=== PATIENT | male | born 1950 | race Caucasian/White ===

== ENCOUNTER 2017-02-21 14:17 | Observation (INO) | payer MEDICARE, OTHER ==
--- NOTE | 2017-02-21 15:30 | PDOC ---
Attending Attestation - HPI HPI: 02/21/17 16:38 66 y/o M with a PMHx of HTN, HLD, diabetes presents to the ED with intermittent palpitations. He reports associated occasional dizziness. Denies chest pain, SOB , abdominal pain. Denies NVD. - Physicial Exam PE: 02/21/17 16:38 GENERAL: Awake, alert, and fully oriented, in no acute distress HEAD: No signs of trauma EYES: PERRLA, EOMI, sclera anicteric, conjunctiva clear ENT: Auricles normal inspection, hearing grossly normal, nares patent, oropharynx clear without exudates. Moist mucosa NECK: Normal ROM, supple, no lymphadenopathy, JVD, or masses LUNGS: Breath sounds equal, clear to auscultation bilaterally. No wheezes, and no crackles HEART: Regular rate and rhythm, normal S1 and S2, no murmurs, rubs or gallops ABDOMEN: Soft, nontender, normoactive bowel sounds. No guarding, no rebound. No masses EXTREMITIES: Normal range of motion, no edema. No clubbing or cyanosis. No cords, erythema, or tenderness NEUROLOGICAL: Cranial nerves II through XII grossly intact. Normal speech, normal gait SKIN: Warm, Dry, normal turgor, no rashes or lesions noted. - Medical Decision Making 02/21/17 16:38 Documentation prepared by Ruth Serrato, acting as medical registrar for Lidia Segal DO. <Ruth Serrato - Last Filed: 02/21/17 16:38> - Resident Resident Name: Keenan Tucker - ED Attending Attestation I have performed the following: I have examined & evaluated the patient, The case was reviewed & discussed with the resident, I agree w/resident's findings & plan, Exceptions are as noted - Medical Decision Making 02/21/17 19:04 a/p: pt with aflutter in the office, intermittent palpitations this week assoc with lightheadedness -will check labs, ekg, cxr, tsh reassess 02/21/17 19:08 pt will be placed in obs for rabaddi. <Lidia Segal - Last Filed: 02/21/17 19:08> Discharge Disposition - Discharge Dispostion Admit: Yes <Lidia Segal - Last Filed: 02/21/17 19:08> - Diagnosis Palpitations - Discharge Dispostion Condition at time of disposition: Stable - Referrals Referrals: Dax Huston MD [Primary Care Provider] - - Patient Instructions - Post Discharge Activity
--- NOTE | 2017-02-21 15:38 | PDOC ---
History of Present Illness - General Chief Complaint: Palpitations Stated Complaint: SENT BY PCP Time Seen by Provider: 02/21/17 15:25 History Source: Patient Exam Limitations: No Limitations - History of Present Illness Initial Comments: 02/21/17 16:09 66 y.o. M with pmh of HTN, HLD, and DM presenting with palpitations and dizziness. Patient states he has had palpitations and dizziness x 1 week. Palpitations last a few seconds and occur on average 1x/day. Patient went to Dr. Huston's office and was found to have atrial flutter with a rate of 80 and was sent to the ED. Patient denies chest pain, sob, n/v/diaphoresis. Allergies: nkda PSH: none Social hx: denies smoking, alcohol, drug use PMD- Dr. Huston Past History - Past Medical History Allergies/Adverse Reactions: Allergies Allergy/AdvReac Type Severity Reaction Status Date / Time No Known Allergies Allergy Verified 02/21/17 14:27 Home Medications: Ambulatory Orders Dapagliflozin Propanediol [Farxiga] 10 mg PO DAILY 02/21/17 Glyburide [Diabeta -] 5 mg PO DAILY@0700 02/21/17 Metformin HCl [Glucophage] 1,000 mg PO BID 02/21/17 Simvastatin [Zocor -] 20 mg PO HS 02/21/17 Diabetes: Yes HTN: Yes Hypercholesterolemia: Yes - Suicide/Smoking/Psychosocial Hx Smoking History: Never smoked Review of Systems - Review of Systems Comments:: 02/21/17 16:12 GENERAL/CONSTITUTIONAL: No fever or chills. No weakness. HEAD, EYES, EARS, NOSE AND THROAT: No change in vision. No ear pain or discharge. No sore throat. CARDIOVASCULAR: No chest pain or shortness of breath +palpitations RESPIRATORY: No cough, wheezing, or hemoptysis. GASTROINTESTINAL: No nausea, vomiting, diarrhea or constipation. GENITOURINARY: No dysuria, frequency, or change in urination. MUSCULOSKELETAL: No joint or muscle swelling or pain. No neck or back pain. SKIN: No rash NEUROLOGIC: No headache, vertigo, loss of consciousness, or change in strength/ sensation. +dizziness ENDOCRINE: No increased thirst. No abnormal weight change HEMATOLOGIC/LYMPHATIC: No anemia, easy bleeding, or history of blood clots. ALLERGIC/IMMUNOLOGIC: No hives or skin allergy. *Physical Exam - Vital Signs Last Vital Signs Temp Pulse Resp BP Pulse Ox 97.9 F 75 20 122/70 100 02/21/17 14:28 02/21/17 14:28 02/21/17 14:28 02/21/17 14:28 02/21/17 14:28 - Physical Exam Comments: 02/21/17 16:12 GENERAL: Awake, alert, and fully oriented, in no acute distress HEAD: No signs of trauma, normocephalic, atraumatic EYES: PERRLA, EOMI, sclera anicteric, conjunctiva clear ENT: Auricles normal inspection, hearing grossly normal, nares patent, oropharynx clear without exudates. Moist mucosa NECK: Normal ROM, supple, no lymphadenopathy, JVD, or masses LUNGS: No distress, speaks full sentences, clear to auscultation bilaterally HEART: Regular rate and rhythm, normal S1 and S2, no murmurs, rubs or gallops, peripheral pulses normal and equal bilaterally. ABDOMEN: Soft, nontender, normoactive bowel sounds. No guarding, no rebound. No masses EXTREMITIES: Normal inspection, Normal range of motion, no edema. No clubbing or cyanosis. NEUROLOGICAL: Cranial nerves II through XII grossly intact. Normal speech, no focal sensorimotor deficits SKIN: Warm, Dry, normal turgor, no rashes or lesions noted. ED Treatment Course - LABORATORY CBC & Chemistry Diagram: 02/21/17 13:38 02/21/17 17:06 Medical Decision Making - Medical Decision Making 02/21/17 16:13 66 y.o. M with pmh of htn, hld, and dm presenting with palpitations x1 week Plan: CBC, CMP, Mg, UA, Ucx, CXR, EKG+troponin, TSH, Cardiology consult 02/21/17 18:59 Patient to be admitted to tele-obs under Dr. Huston. *DC/Admit/Observation/Transfer Diagnosis at time of Disposition: Palpitations - Discharge Dispostion Condition at time of disposition: Stable Admit: Yes Decision to Admit order Date/Time: 02/21/17 19:01 - Referrals
[2017-02-21 15:54] LABS: BASOPHIL 0.4 % (0-2.0); EOSINOPHIL 2.1 % (0-4.5); MCH 29.9 pg (25.7-33.7); MCHC 34.2 g/dl (32.0-35.9); MEAN CELL VOLUME 87.5 fl (80-96); MEAN PLT VOLUME 9.8 fl (7.5-11.1); NEUTROPHILS 52.4 % (42.8-82.8); PLATELET COUNT 150 K/MM3 (134-434); RDW 13.4 % (11.9-15.9); WHITE BLOOD COUNT 7.3 K/mm3 (4.0-10.0)
[2017-02-21 15:56] LABS: URINE APPEARANCE CLOUDY; URINE BILIRUBIN NEGATIVE (NEGATIVE); URINE BLOOD NEGATIVE (NEGATIVE); URINE COLOR AMBER; URINE GLUCOSE (UA) 3+ (NEGATIVE); URINE KETONE NEGATIVE (NEGATIVE); URINE LEUK ESTERASE NEGATIVE (NEGATIVE); URINE NITRITE NEGATIVE (NEGATIVE); URINE PROTEIN NEGATIVE (NEGATIVE); URINE UROBILINOGEN NEGATIVE mg/dL (0.2-1.0)
[2017-02-21 16:42] LABS: INR 1.08 (0.82-1.09); PROTHROMBIN TIME (PATIENT) 11.9 SEC (9.98-11.88)
[2017-02-21 18:45] LABS: ALBUMIN 3.5 g/dl (3.4-5.0); ANION GAP 6 (8-16); CALCIUM 8.6 mg/dL (8.5-10.1); CO2 28 mmol/L (21-32); CREATININE 0.6 mg/dL (0.7-1.3); GLUCOSE,RANDOM 132 mg/dL (74-106); MAGNESIUM 2.2 mg/dL (1.8-2.4); SGOT/AST 9 U/L (15-37); SGPT/ALT 22 U/L (12-78)
[2017-02-21 18:55] LABS: ALK PHOS 52 U/L (45-117); BILIRUBIN,TOTAL 0.3 mg/dL (0.2-1.0); CPK 67 IU/L (39-308); THYROID STIMULATING HORMONE 1.01 uIU/ml (0.358-3.74); TOT PROT 6.4 g/dl (6.4-8.2); TROPONIN I 0.03 ng/ml (0.00-0.05)
--- NOTE | 2017-02-21 19:53 | EKG ---
Test Reason : Blood Pressure : / mmHG Vent. Rate : 066 BPM Atrial Rate : 066 BPM P-R Int : 140 ms QRS Dur : 100 ms QT Int : 400 ms P-R-T Axes : 037 -24 017 degrees QTc Int : 419 ms NORMAL SINUS RHYTHM EARLY TRANSITION IN V1-V2 LEFT ANTERIOR FASCICULAR BLOCK NO PREVIOUS ECGS AVAILABLE REPEAT EKG IF CLINICALLY INDICATED Confirmed by BA DELEON MD ([id number]) on 02/21/2017 7:53:24 PM Referred By: Confirmed By:BA DELEON MD
[2017-02-21] MEDS ORDERED: ACETAMINOPHEN 325 MG TABLET (FP) PO PRN (20:21)
--- NOTE | 2017-02-21 20:47 | HP ---
Admitting History and Physical - Primary Care Physician PCP: Dax Huston - Admission Chief Complaint: CHEST PAIN WITH PALPITATIONS History of Present Illness: 66 YEAR OLD MALE WITH HISTORY OF DM, HTN, LIPIDEMIA, OBESITY PRESENTS TO ER AFTER FOUND TO BE IN ATRIAL FLUTTER AT MY OFFICE EARLIER TODAY. History Source: Patient Limitations to Obtaining History: No Limitations - Past Medical History Cardiovascular: Yes: HTN, Hyperlipdemia Endocrine: Yes: Diabetes Mellitus - Smoking History Smoking history: Never smoked Home Medications - Allergies Allergies/Adverse Reactions: Allergies Allergy/AdvReac Type Severity Reaction Status Date / Time No Known Allergies Allergy Verified 02/21/17 14:27 - Home Medications Home Medications: Ambulatory Orders Dapagliflozin Propanediol [Farxiga] 10 mg PO DAILY 02/21/17 Glyburide [Diabeta -] 5 mg PO DAILY@0700 02/21/17 Metformin HCl [Glucophage] 1,000 mg PO BID 02/21/17 Simvastatin [Zocor -] 20 mg PO HS 02/21/17 Review of Systems - Review of Systems Constitutional: reports: Lethargy, Weakness Eyes: reports: No Symptoms HENT: reports: No Symptoms Neck: reports: No Symptoms Cardiovascular: reports: Palpitations, Shortness of Breath Respiratory: reports: Exercise Intolerance, SOB, SOB on Exertion Gastrointestinal: reports: No Symptoms Genitourinary: reports: No Symptoms Musculoskeletal: reports: No Symptoms Integumentary: reports: No Symptoms Neurological: reports: No Symptoms Endocrine: reports: No Symptoms Hematology/Lymphatic: reports: No Symptoms Psychiatric: reports: No Symptoms Physical Examination Vital Signs: Vital Signs Temperature 97.6 F 02/21/17 20:03 Pulse Rate 72 02/21/17 20:03 Respiratory Rate 18 02/21/17 20:03 Blood Pressure 117/57 02/21/17 20:03 O2 Sat by Pulse Oximetry (%) 96 02/21/17 20:03 Constitutional: Yes: Moderate Distress Eyes: Yes: WNL, Other Neck: Yes: WNL Cardiovascular: Yes: Pulse Irregular Respiratory: Yes: WNL Gastrointestinal: Yes: WNL Renal/: Yes: WNL Musculoskeletal: Yes: WNL Extremities: Yes: WNL Edema: No Integumentary: Yes: WNL Wound/Incision: Yes: Clean/Dry Neurological: Yes: WNL ...Motor Strength: WNL Psychiatric: Yes: WNL Imaging - Results Chest X-ray: Report Reviewed Problem List - Problems (1) Palpitations Code(s): R00.2 - PALPITATIONS (2) Atrial flutter by electrocardiogram Code(s): I48.92 - UNSPECIFIED ATRIAL FLUTTER (3) DMII (diabetes mellitus, type 2) Code(s): E11.9 - TYPE 2 DIABETES MELLITUS WITHOUT COMPLICATIONS Qualifiers: Diabetes mellitus complication status: with ophthalmic complications Diabetic retinopathy severity: with mild nonproliferative retinopathy Diabetes mellitus macular edema: without macular edema Diabetes mellitus intermediate insulin use: with exterminator use Laterality: bilateral (4) HTN (hypertension) Code(s): I10 - ESSENTIAL (PRIMARY) HYPERTENSION Qualifiers: Hypertension type: essential hypertension Qualified Code(s): I10 - Essential (primary) hypertension (5) Lipidemia Code(s): E78.5 - HYPERLIPIDEMIA, UNSPECIFIED Qualifiers: Hyperlipidemia type: pure hypercholesterolemia Qualified Code(s): E78.00 - Pure hypercholesterolemia, unspecified; E78.0 - Pure hypercholesterolemia (6) Obesity Code(s): E66.9 - OBESITY, UNSPECIFIED Qualifiers: Obesity type: due to excess calories Body mass index: BMI 35.0-35.9 (7) Coronary syndrome, acute Code(s): I24.9 - ACUTE ISCHEMIC HEART DISEASE, UNSPECIFIED Assessment/Plan ADMIT TO TELEMETRY CARDIAC EVAL STRESS TEST CAROTID DOPPLER ECHO LIPID PNEL A1C SSI BGM AC/HS DIABETIC DIET DIETARY CONSULT ON COMPLIANCE WITH DIABETIC LOW FAT LOW SALT DIET
[2017-02-21] MEDS: ATORVASTATIN CA 20 MG TABLET (FP) PO SCH (22:04)
[2017-02-21] MEDS: INSULIN SLIDING SCALE (NOVOLOG) 1 VIAL SQ SCH (22:05)
[2017-02-21 23:00] VITALS: BMI 32.8
[2017-02-22] MEDS: glyBURIDE 5 MG TABLET (UD) PO SCH ×2 (06:10→17:35)
[2017-02-22] MEDS: INSULIN SLIDING SCALE (NOVOLOG) 1 VIAL SQ SCH ×5 (06:10→22:24)
[2017-02-22 09:06] LABS: TROPONIN I 0.04 ng/ml (0.00-0.05)
[2017-02-22] MEDS ORDERED: DIPYRIDAMOLE STRESS TEST 50 MG in DEXTROSE 5%-WATER - 40 ML IVPB ONE (10:00)
[2017-02-22] MEDS ORDERED: AMINOPHYLLINE 250 MG/10 ML VIAL IVPUSH ONE ×2 (12:00→14:30)
[2017-02-22] MEDS ORDERED: AMINOPHYLLINE 250 MG/10 ML VIAL ONE (12:05)
--- NOTE | 2017-02-22 13:58 | CON.CARD ---
Consult Consult Specialty:: Cardiology Referred by:: Dr. Huston Reason for Consultation:: CAD with abnormal nuclear stress test. - History of Present Illness Chief Complaint: Palpitation and occasional chest pain. History of Present Illness: 66 year-old man with a PMHx of HTN, DM-II, hyperlipidemia, paroxysmal atrial flutter admitted 02/21/2017 with intermittent palpitation. The patient reports occasional chest pain. He reports no SOB, dizziness, syncope or near syncope. He was found to be in normal sinus rhyth without recurrent atrial flutter. Cardiac markers are negative. Echo 02/12/2017 revealed normal LV size, wall motion and systolic function. But Dipyridamole nuclear stress test 02/22/2017 showed moderate size and intensity lateral wall stress induced ischemia. LV systolic function is preserved with LVEF of 66%. Mr. Arreaga has been stable since admission. He has no recurrent palpitation or chest pain. Tele shows sinus without recurrent atrial flutter. - History Source History Provided By: Patient Limitations to Obtaining History: No Limitations - Past Medical History Cardio/Vascular: Yes: HTN, Hyperlipdemia Endocrine: Yes: Diabetes Mellitus - Alcohol/Substance Use Hx Alcohol Use: No - Smoking History Smoking history: Never smoked Home Medications - Allergies Allergies/Adverse Reactions: Allergies Allergy/AdvReac Type Severity Reaction Status Date / Time No Known Allergies Allergy Verified 02/21/17 14:27 - Home Medications Home Medications: Ambulatory Orders Dapagliflozin Propanediol [Farxiga] 10 mg PO DAILY 02/21/17 Glyburide [Diabeta -] 5 mg PO DAILY@0700 02/21/17 Metformin HCl [Glucophage] 1,000 mg PO BID 02/21/17 Simvastatin [Zocor -] 20 mg PO HS 02/21/17 Review of Systems - Review of Systems Constitutional: reports: No Symptoms Eyes: reports: No Symptoms HENT: reports: No Symptoms Neck: reports: No Symptoms Cardiovascular: reports: Chest Pain, Palpitations Respiratory: reports: No Symptoms Gastrointestinal: reports: No Symptoms Genitourinary: reports: No Symptoms Breasts: reports: No Symptoms Reported Musculoskeletal: reports: No Symptoms Integumentary: reports: No Symptoms Neurological: reports: No Symptoms Endocrine: reports: No Symptoms Hematology/Lymphatic: reports: No Symptoms Psychiatric: reports: No Symptoms Vital Signs: Vital Signs Temperature 98.1 F 02/22/17 08:00 Pulse Rate 69 02/22/17 08:00 Respiratory Rate 20 02/22/17 08:00 Blood Pressure 132/59 02/22/17 08:00 O2 Sat by Pulse Oximetry (%) 99 02/22/17 08:00 Constitutional: Yes: Well Nourished, No Distress, Calm Eyes: Yes: Conjunctiva Clear, EOM Intact, PERRL HENT: Yes: Atraumatic, Normocephalic Neck: Yes: WNL, Supple, Trachea Midline Respiratory: Yes: Regular, CTA Bilaterally Gastrointestinal: Yes: Normal Bowel Sounds, Soft Cardiovascular: Yes: Regular Rate and Rhythm JVD: No Carotid Bruit: No PMI: Non-Displaced Heart Sounds: Yes: S1, S2 Murmur: Yes: Systolic Murmur, Grade 2 Musculoskeletal: Yes: WNL Extremities: Yes: WNL Edema: No Peripheral Pulses WNL: Yes - Other Data Labs, Other Data: INR, PTT INR 1.08 (0.82-1.09) 02/21/17 13:38 Troponin, BNP 02/22/17 05:30 Troponin I 0.04 D Troponin, BNP 02/22/17 05:30 Troponin I 0.04 D Echo: Report Reviewed (Normal LV size, wall motion and systolic function.) Imaging - Results EKG: Report Reviewed (Normal sinus rhythm, LAD, normal ST-T.) Assessment/Plan 66 year-old man with a PMHx of HTN, DM-II, hyperlipidemia, paroxysmal atrial flutter admitted 02/21/2017 with intermittent palpitation and occasional chest pain. He was found to be in normal sinus rhyth without recurrent atrial flutter. Cardiac markers are negative. Echo 02/12/2017 revealed normal LV size, wall motion and systolic function. But Dipyridamole nuclear stress test 02/22/2017 showed moderate size and intensity lateral wall stress induced ischemia. LV systolic function is preserved with LVEF of 66%. 1) Abnormal nuclear stress test with moderate size and intensity stress induced ischemia in lateral wall. Patient has multiple risk factors. He has high likelihood of significant CAD. Cardiac cath is scheduled for tomorrow, 02/23/2017 at [facility]. He will be transferred to [facility] tomorrow morning. Please keep the pt NPO after midnight. 2) Paroxysmal atrial flutter with intermittent palpitation. ECG and tele showed no evidence of recurrent atrial flutter. Continue aspirin and propranolol. Case discussed with Dr. Huston.
--- NOTE | 2017-02-22 15:12 | DS ---
Physical Examination Vital Signs: Vital Signs Temperature 98.9 F 02/22/17 15:00 Pulse Rate 67 02/22/17 15:00 Respiratory Rate 18 02/22/17 15:00 Blood Pressure 122/55 02/22/17 15:00 O2 Sat by Pulse Oximetry (%) 99 02/22/17 08:00 Findings/Remarks: positive stress test Constitutional: Yes: Mild Distress Eyes: Yes: WNL HENT: Yes: WNL Neck: Yes: WNL Cardiovascular: Yes: WNL Respiratory: Yes: WNL Gastrointestinal: Yes: WNL Musculoskeletal: Yes: Muscle Weakness Extremities: Yes: WNL Edema: No Peripheral Pulses WNL: Yes Integumentary: Yes: WNL Wound/Incision: Yes: Clean/Dry Neurological: Yes: WNL ...Motor Strength: WNL Psychiatric: Yes: WNL Discharge Summary Reason For Visit: PALPITATIONS Current Active Problems Coronary syndrome, acute (Acute) DMII (diabetes mellitus, type 2) (Acute) HTN (hypertension) (Acute) Lipidemia (Acute) Obesity (Acute) Palpitations (Acute) Procedures: Principal: stress test Hospital Course: positive ischemia on stress test will transfer to [facility] for cardiac cath Condition: Stable - Instructions Referrals: Dax Huston MD [Primary Care Provider] - Disposition: TRANSFER ACUTE CARE/OTHER HOSP - Home Medications Comprehensive Discharge Medication List: Ambulatory Orders Dapagliflozin Propanediol [Farxiga] 10 mg PO DAILY 02/21/17 Glyburide [Diabeta -] 5 mg PO DAILY@0700 02/21/17 Metformin HCl [Glucophage] 1,000 mg PO BID 02/21/17 Simvastatin [Zocor -] 20 mg PO HS 02/21/17
[2017-02-22] MEDS: ATORVASTATIN CA 20 MG TABLET (FP) PO SCH (22:22)
[2017-02-23] MEDS: INSULIN SLIDING SCALE (NOVOLOG) 1 VIAL SQ SCH ×2 (06:42→11:22)
[2017-02-23] MEDS: glyBURIDE 5 MG TABLET (UD) PO SCH (06:42)
[2017-02-23 09:47] VITALS: BP 118/62; PULSE 58; TEMP 97.8
--- NOTE | 2017-02-23 11:30 | PN ---
Progress Note (short form) - Note Progress Note: ACUTE ATRIAL FLUTTER WITH ISCHEMIA TRANSFERRING TO [facility] FOR CARDIAC CATH PATIENT STABLE FORMS COMPLETED Problem List - Problems (1) Palpitations Code(s): R00.2 - PALPITATIONS (2) Atrial flutter by electrocardiogram Code(s): I48.92 - UNSPECIFIED ATRIAL FLUTTER (3) DMII (diabetes mellitus, type 2) Code(s): E11.9 - TYPE 2 DIABETES MELLITUS WITHOUT COMPLICATIONS Qualifiers: Diabetes mellitus complication status: with ophthalmic complications Diabetic retinopathy severity: with mild nonproliferative retinopathy Diabetes mellitus macular edema: without macular edema Diabetes mellitus concrete stone finisher insulin use: with mcc use Laterality: bilateral (4) HTN (hypertension) Code(s): I10 - ESSENTIAL (PRIMARY) HYPERTENSION Qualifiers: Hypertension type: essential hypertension Qualified Code(s): I10 - Essential (primary) hypertension (5) Lipidemia Code(s): E78.5 - HYPERLIPIDEMIA, UNSPECIFIED Qualifiers: Hyperlipidemia type: pure hypercholesterolemia Qualified Code(s): E78.00 - Pure hypercholesterolemia, unspecified; E78.0 - Pure hypercholesterolemia (6) Obesity Code(s): E66.9 - OBESITY, UNSPECIFIED Qualifiers: Obesity type: due to excess calories Body mass index: BMI 35.0-35.9 (7) Coronary syndrome, acute Code(s): I24.9 - ACUTE ISCHEMIC HEART DISEASE, UNSPECIFIED
== END 2017-02-23 13:19 | disposition short-term general hospital (02) ==
LOC: JER 14:17 → JERBED 19:08 → UNDOADMOB 19:08 → OBSVTOIN 20:18 → JERBED 20:18 → INTOOBSV 20:18 → J4W 21:49 → JERBED 21:49
PROVIDERS: ADMIT Family Medicine; ATTEND Family Medicine
PROC: 3E033GC Introduction of Other Therapeutic Substance into Peripheral Vein, Percutaneous Approach (ICD-10-PCS; principal; 2017-02-21)
DX: I48.92 Unspecified atrial flutter (principal); I24.9 Acute ischemic heart disease, unspecified; R00.2 Palpitations; E11.39 Type 2 diabetes mellitus with other diabetic ophthalmic complication; Z79.84 Long term (current) use of oral hypoglycemic drugs; I10 Essential (primary) hypertension; E78.5 Hyperlipidemia, unspecified; Z79.82 Long term (current) use of aspirin
CPT/HCPCS: 36415; 71010-TC; 78452-TC; 80053; 80061; 81003; 83036; 83721; 83735; 84443; 84484; 85025; 85610; 87086; 93005; 93010; 93017; 93306-TC; 93880-TC; 99285-25; A9502; G0378

== ENCOUNTER 2020-05-17 13:08 | Inpatient (IN) | payer MEDICARE, OTHER ==
[2020-05-17] MEDS ORDERED: ACETAMINOPHEN 1000 MG/100 ML BAG IVPB ONE (14:03)
[2020-05-17] MEDS ORDERED: DEXAMETHASONE SOD PHOSPHATE 10 MG/1 ML VIAL IVPUSH ONE (14:03)
[2020-05-17] MEDS ORDERED: DEXAMETHASONE SOD PHOSPHATE 10 MG/1 ML VIAL ONE (14:10)
[2020-05-17] MEDS ORDERED: ACETAMINOPHEN INJECTION 100 ML IVPB ONE ×2 (14:10→15:09)
[2020-05-17] MEDS: SODIUM CHLORIDE 2,449 ML IV ONE ×2 (14:36→15:06)
[2020-05-17] MEDS ORDERED: FAMOTIDINE 20 MG/50 ML IVPB 20 MG/50 ML MG IVPB ONE ×2 (15:12→15:16)
[2020-05-17] MEDS ORDERED: MAG HYDROX/AL HYDROX/SIMETH 30 ML UNIT-DOSE CUP PO ONE (15:12)
[2020-05-17] MEDS ORDERED: MAG HYDROX/AL HYDROX/SIMETH 30 ML UNIT-DOSE CUP ONE (15:17)
[2020-05-17 15:53] LABS: ALBUMIN 3.5 g/dl (3.4-5.0); BLOOD UREA NITROGEN 14.8 mg/dL (7-18); CALCIUM 8.6 mg/dL (8.5-10.1)
[2020-05-17 15:56] LABS: BILIRUBIN,DIRECT 0.2 mg/dL (0.0-0.2); CREATININE 0.9 mg/dL (0.55-1.3)
[2020-05-17 15:58] LABS: BILIRUBIN,TOTAL 0.5 mg/dL (0.2-1); TOT PROT 7.3 g/dl (6.4-8.2)
[2020-05-17 16:02] LABS: INR 1.17 (0.83-1.09); PROTHROMBIN TIME (PATIENT) 14.1 SEC (9.7-13.0)
[2020-05-17 16:04] LABS: ACTIVATED PTT 32.4 SECONDS (25.2-36.5)
[2020-05-17 17:46] LABS: BASO % 0.2 % (0-2.0); HEMATOCRIT 41.7 % (35.4-49); HEMOGLOBIN 14.1 GM/dL (11.7-16.9); LYMPH % 13.5 % (8-40); MCH 29.2 pg (25.7-33.7); MCHC 33.7 g/dl (32.0-35.9); MEAN CELL VOLUME 86.6 fl (80-96); MEAN PLT VOLUME 9.6 fl (7.5-11.1); NEUT % 79.3 % (42.8-82.8); PLATELET COUNT 91 K/MM3 (134-434); RBC 4.82 M/mm3 (4.00-5.60); RDW 13.2 % (11.9-15.9)
[2020-05-17 18:02] LABS: WHITE BLOOD COUNT 3.7 K/mm3 (4.0-10.0)
[2020-05-17 18:56] LABS: VENOUS BASE EXCESS -5.3 mmol/L (-2-2); VENOUS O2 SATURATION 82.2 % (70-80); VENOUS PCO2 42.4 mmHg (38-52); VENOUS PH 7.308 (7.310-7.410)
[2020-05-17 20:16] LABS: PLATELET ESTIMATE DECREASED
[2020-05-17] MEDS ORDERED: ENOXAPARIN NA (PORCINE) 40 MG/0.4 ML DISP.SYRIN SQ ONE (21:07)
[2020-05-17] MEDS ORDERED: INSULIN SLIDING SCALE (NOVOLOG) 1 VIAL SQ ONE (21:29)
[2020-05-17] MEDS: ENOXAPARIN NA (PORCINE) 40 MG/0.4 ML DISP.SYRIN SQ SCH (21:40)
[2020-05-17] MEDS: INSULIN SLIDING SCALE (NOVOLOG) 1 VIAL SQ SCH (21:47)
[2020-05-18 03:40] LABS: EPI CELLS 4 /uL (0-25.1); HYALINE CASTS 1 /uL (0-3.1); URINE APPEARANCE CLEAR; URINE BACTERIA 3 /uL (0-1359); URINE BILIRUBIN NEGATIVE (NEGATIVE); URINE COLOR YELLOW; URINE GLUCOSE (UA) 3+ (NEGATIVE); URINE KETONE 4+ (NEGATIVE); URINE LEUK ESTERASE NEGATIVE (NEGATIVE); URINE NITRITE NEGATIVE (NEGATIVE); URINE PROTEIN 1+ (NEGATIVE); URINE RBC 9 /uL (0-23.9); URINE UROBILINOGEN 0.2 mg/dL (0.2-1.0); URINE WBC 3 /uL (0-25.8)
[2020-05-18 06:45] LABS: BASO % 0.2 % (0-2.0); HEMATOCRIT 43.8 % (35.4-49); HEMOGLOBIN 14.8 GM/dL (11.7-16.9); LYMPH % 18.2 % (8-40); MCH 29.4 pg (25.7-33.7); MCHC 33.8 g/dl (32.0-35.9); MEAN CELL VOLUME 86.8 fl (80-96); MEAN PLT VOLUME 9.2 fl (7.5-11.1); MONO % 13.2 % (3.8-10.2); NEUT % 68.4 % (42.8-82.8); PLATELET COUNT 109 K/MM3 (134-434); RBC 5.04 M/mm3 (4.00-5.60); RDW 13.3 % (11.9-15.9); WHITE BLOOD COUNT 4.1 K/mm3 (4.0-10.0)
[2020-05-18 06:52] LABS: BLOOD UREA NITROGEN 21.5 mg/dL (7-18); CALCIUM 8.9 mg/dL (8.5-10.1); MAGNESIUM 2.3 mg/dL (1.8-2.4)
[2020-05-18 06:55] LABS: CREATININE 0.8 mg/dL (0.55-1.3)
[2020-05-18 07:00] LABS: N-TERMINAL BNP 159.2 pg/ml (5-125)
[2020-05-18] MEDS: INSULIN SLIDING SCALE (NOVOLOG) 1 VIAL SQ SCH ×4 (07:28→21:14)
[2020-05-18] MEDS ORDERED: DEXAMETHASONE SOD PHOSPHATE 10 MG/1 ML VIAL ONE (09:40)
[2020-05-18] MEDS ORDERED: ENOXAPARIN NA (PORCINE) 40 MG/0.4 ML DISP.SYRIN SQ ONE (09:41)
[2020-05-18] MEDS: DEXAMETHASONE SOD PHOSPHATE 4 MG/1 ML VIAL IVPUSH SCH (09:46)
[2020-05-18] MEDS: ENOXAPARIN NA (PORCINE) 40 MG/0.4 ML DISP.SYRIN SQ SCH (09:46)
[2020-05-18] MEDS: ASCORBIC ACID 500 MG TABLET (FP) PO SCH ×2 (14:36→21:13)
[2020-05-18] MEDS: ZINC SULFATE 220 MG CAPSULE (FP) PO SCH (14:36)
[2020-05-18] MEDS ORDERED: REMDESIVIR 200 MG in SODIUM CHLORIDE 210 ML IVPB ONE (15:21)
[2020-05-18] MEDS ORDERED: cefTRIAXone SODIUM 1 GM VIAL ONE (18:39)
[2020-05-18] MEDS ORDERED: DEXTROSE 5%-WATER - 50 ML IVPB ONE (18:40)
[2020-05-18] MEDS: CEFTRIAXONE 1 GM in DEXTROSE 5%-WATER - 50 ML IVPB SCH (18:44)
[2020-05-18] MEDS: AZITHROMYCIN IVPB 500 MG/250 ML BAG IVPB SCH (19:39)
[2020-05-18] MEDS ORDERED: INSULIN (NOVOLOG) ASPART 100 UNITS/ML 10ML VIAL ONE (21:08)
[2020-05-18] MEDS: INSULIN (LEVEMIR) 100 UNITS/ML UNITS SQ SCH (21:13)
[2020-05-18] MEDS ORDERED: PATIENT'S OWN MEDICATION (NON-FORMULARY) (Simvastatin 20 MG Tablet) PO SCH (22:00)
[2020-05-18] MEDS ORDERED: ATORVASTATIN CA 10 MG TABLET (FP) PO SCH (22:00)
[2020-05-19] MEDS ORDERED: INSULIN (NOVOLOG) ASPART 100 UNITS/ML 10ML VIAL SQ ONE (00:02)
[2020-05-19] MEDS: INSULIN SLIDING SCALE (NOVOLOG) 1 VIAL SQ SCH ×4 (06:03→22:50)
[2020-05-19] MEDS: ACETAMINOPHEN 325 MG TABLET (FP) PO PRN (06:04)
[2020-05-19] MEDS: INSULIN (LEVEMIR) 100 UNITS/ML UNITS SQ SCH ×2 (06:04→22:51)
[2020-05-19] MEDS ORDERED: INSULIN (NOVOLOG) ASPART 100 UNITS/ML 10ML VIAL ONE ×3 (06:32→22:07)
[2020-05-19] MEDS ORDERED: cefTRIAXone SODIUM 1 GM VIAL ONE (08:56)
[2020-05-19] MEDS ORDERED: DEXTROSE 5%-WATER - 50 ML IVPB ONE (08:56)
[2020-05-19 09:03] LABS: BASO % 0.3 % (0-2.0); HEMATOCRIT 39.4 % (35.4-49); HEMOGLOBIN 13.5 GM/dL (11.7-16.9); LYMPH % 18.3 % (8-40); MCH 29.3 pg (25.7-33.7); MCHC 34.3 g/dl (32.0-35.9); MEAN CELL VOLUME 85.4 fl (80-96); MEAN PLT VOLUME 9.7 fl (7.5-11.1); MONO % 11.1 % (3.8-10.2); NEUT % 70.3 % (42.8-82.8); PLATELET COUNT 124 K/MM3 (134-434); RBC 4.61 M/mm3 (4.00-5.60); RDW 13.2 % (11.9-15.9); WHITE BLOOD COUNT 4.6 K/mm3 (4.0-10.0)
[2020-05-19 09:26] LABS: CALCIUM 8.3 mg/dL (8.5-10.1)
[2020-05-19 09:27] LABS: ALBUMIN 2.9 g/dl (3.4-5.0); BLOOD UREA NITROGEN 23.3 mg/dL (7-18)
[2020-05-19 09:30] LABS: CREATININE 0.9 mg/dL (0.55-1.3)
[2020-05-19 09:31] LABS: BILIRUBIN,TOTAL 0.6 mg/dL (0.2-1); TOT PROT 6.3 g/dl (6.4-8.2)
[2020-05-19] MEDS ORDERED: LACTATED RINGERS SOLUTION 1,000 ML/1,000 ML INFUS.BAG IV STA (09:39)
[2020-05-19] MEDS ORDERED: LACTATED RINGERS SOLUTION 1,000 ML/1,000 ML INFUS.BAG IV SCH (09:45)
[2020-05-19] MEDS: DEXAMETHASONE SOD PHOSPHATE 4 MG/1 ML VIAL IVPUSH SCH (10:36)
[2020-05-19] MEDS: CEFTRIAXONE 1 GM in DEXTROSE 5%-WATER - 50 ML IVPB SCH (10:37)
[2020-05-19] MEDS: ASCORBIC ACID 500 MG TABLET (FP) PO SCH ×2 (10:38→22:49)
[2020-05-19] MEDS: ZINC SULFATE 220 MG CAPSULE (FP) PO SCH (10:38)
[2020-05-19] MEDS: ENOXAPARIN NA (PORCINE) 40 MG/0.4 ML DISP.SYRIN SQ SCH (10:39)
[2020-05-19] MEDS ORDERED: POTASSIUM CHLORIDE TABS 20 MEQ TABLET.ER (FP) PO ONE (10:57)
[2020-05-19] MEDS: LACTATED RINGERS SOLUTION 1,000 ML/1,000 ML INFUS.BAG IV SCH (13:02)
[2020-05-19] MEDS: AZITHROMYCIN IVPB 500 MG/250 ML BAG IVPB SCH (13:06)
[2020-05-19] MEDS: REMDESIVIR 100 MG in SODIUM CHLORIDE 230 ML IVPB SCH (16:50)
[2020-05-19] MEDS: ATORVASTATIN CA 10 MG TABLET (FP) PO SCH (22:50)
[2020-05-19] MEDS ORDERED: guaiFENesin/D-METHORPHAN HB 10 ML UNIT-DOSE CUPS PO ONE (23:57)
[2020-05-20] MEDS: INSULIN (LEVEMIR) 100 UNITS/ML UNITS SQ SCH ×2 (06:20→21:37)
[2020-05-20] MEDS: INSULIN SLIDING SCALE (NOVOLOG) 1 VIAL SQ SCH ×4 (06:21→21:46)
[2020-05-20] MEDS ORDERED: cefTRIAXone SODIUM 1 GM VIAL ONE (09:12)
[2020-05-20] MEDS ORDERED: DEXTROSE 5%-WATER - 50 ML IVPB ONE (09:12)
[2020-05-20] MEDS: CEFTRIAXONE 1 GM in DEXTROSE 5%-WATER - 50 ML IVPB SCH (09:16)
[2020-05-20] MEDS: ENOXAPARIN NA (PORCINE) 40 MG/0.4 ML DISP.SYRIN SQ SCH (09:17)
[2020-05-20] MEDS: DEXAMETHASONE SOD PHOSPHATE 4 MG/1 ML VIAL IVPUSH SCH (09:17)
[2020-05-20] MEDS: ZINC SULFATE 220 MG CAPSULE (FP) PO SCH (09:17)
[2020-05-20 09:23] LABS: BASO % 0.2 % (0-2.0); HEMATOCRIT 37.1 % (35.4-49); HEMOGLOBIN 12.6 GM/dL (11.7-16.9); MCH 29.5 pg (25.7-33.7); MEAN CELL VOLUME 86.8 fl (80-96); MEAN PLT VOLUME 9.8 fl (7.5-11.1); MONO % 14.9 % (3.8-10.2); NEUT % 61.9 % (42.8-82.8); PLATELET COUNT 130 K/MM3 (134-434); RBC 4.27 M/mm3 (4.00-5.60); RDW 13.3 % (11.9-15.9); WHITE BLOOD COUNT 4.2 K/mm3 (4.0-10.0)
[2020-05-20 09:34] LABS: ALBUMIN 2.6 g/dl (3.4-5.0); BLOOD UREA NITROGEN 20.6 mg/dL (7-18); CALCIUM 8.2 mg/dL (8.5-10.1)
[2020-05-20 09:37] LABS: CREATININE 0.7 mg/dL (0.55-1.3)
[2020-05-20 09:39] LABS: BILIRUBIN,TOTAL 0.6 mg/dL (0.2-1); TOT PROT 5.6 g/dl (6.4-8.2)
[2020-05-20] MEDS: AZITHROMYCIN IVPB 500 MG/250 ML BAG IVPB SCH (10:35)
[2020-05-20] MEDS ORDERED: INSULIN (NOVOLOG) ASPART 100 UNITS/ML 10ML VIAL ONE (12:13)
[2020-05-20] MEDS: LACTATED RINGERS SOLUTION 1,000 ML/1,000 ML INFUS.BAG IV SCH (12:19)
[2020-05-20] MEDS: ASCORBIC ACID 500 MG TABLET (FP) PO SCH ×2 (13:43→21:37)
[2020-05-20] MEDS: APIXABAN 5 MG TABLET PO SCH ×2 (14:58→21:37)
[2020-05-20] MEDS: REMDESIVIR 100 MG in SODIUM CHLORIDE 230 ML IVPB SCH (16:53)
[2020-05-20] MEDS: ATORVASTATIN CA 10 MG TABLET (FP) PO SCH (21:37)
[2020-05-21] MEDS: INSULIN SLIDING SCALE (NOVOLOG) 1 VIAL SQ SCH ×4 (06:31→21:18)
[2020-05-21] MEDS: INSULIN (LEVEMIR) 100 UNITS/ML UNITS SQ SCH ×2 (06:31→21:03)
[2020-05-21] MEDS ORDERED: INSULIN (NOVOLOG) ASPART 100 UNITS/ML 10ML VIAL ONE ×2 (07:36→20:56)
[2020-05-21 09:05] LABS: BASO % 0.1 % (0-2.0); EOS % 0.1 % (0-4.5); HEMATOCRIT 37.4 % (35.4-49); HEMOGLOBIN 12.9 GM/dL (11.7-16.9); MCH 29.5 pg (25.7-33.7); MCHC 34.3 g/dl (32.0-35.9); MEAN CELL VOLUME 85.9 fl (80-96); MEAN PLT VOLUME 9.5 fl (7.5-11.1); MONO % 13.9 % (3.8-10.2); NEUT % 63.9 % (42.8-82.8); PLATELET COUNT 145 K/MM3 (134-434); RBC 4.36 M/mm3 (4.00-5.60); RDW 13.4 % (11.9-15.9); WHITE BLOOD COUNT 5.4 K/mm3 (4.0-10.0)
[2020-05-21 09:36] LABS: ALBUMIN 2.5 g/dl (3.4-5.0); BLOOD UREA NITROGEN 18.7 mg/dL (7-18); CALCIUM 8.3 mg/dL (8.5-10.1)
[2020-05-21 09:40] LABS: CREATININE 0.6 mg/dL (0.55-1.3)
[2020-05-21 09:41] LABS: BILIRUBIN,TOTAL 0.6 mg/dL (0.2-1); TOT PROT 5.4 g/dl (6.4-8.2)
[2020-05-21] MEDS ORDERED: DEXTROSE 5%-WATER - 50 ML IVPB ONE (09:57)
[2020-05-21] MEDS ORDERED: cefTRIAXone SODIUM 1 GM VIAL ONE (09:57)
[2020-05-21] MEDS: APIXABAN 5 MG TABLET PO SCH ×2 (10:04→21:03)
[2020-05-21] MEDS: DEXAMETHASONE SOD PHOSPHATE 4 MG/1 ML VIAL IVPUSH SCH (10:04)
[2020-05-21] MEDS: ZINC SULFATE 220 MG CAPSULE (FP) PO SCH (10:04)
[2020-05-21] MEDS: ASCORBIC ACID 500 MG TABLET (FP) PO SCH ×2 (10:04→21:03)
[2020-05-21] MEDS: CEFTRIAXONE 1 GM in DEXTROSE 5%-WATER - 50 ML IVPB SCH (10:04)
[2020-05-21] MEDS: LACTATED RINGERS SOLUTION 1,000 ML/1,000 ML INFUS.BAG IV SCH (10:06)
[2020-05-21] MEDS: AZITHROMYCIN IVPB 500 MG/250 ML BAG IVPB SCH (11:27)
[2020-05-21] MEDS ORDERED: POTASSIUM CHLORIDE TABS 20 MEQ TABLET.ER (FP) PO ONE (11:55)
[2020-05-21] MEDS: guaiFENesin/CODEINE 5 ML UNIT-DOSE CUPS PO PRN ×2 (13:39→21:35)
[2020-05-21] MEDS: REMDESIVIR 100 MG in SODIUM CHLORIDE 230 ML IVPB SCH (16:49)
[2020-05-21] MEDS: ATORVASTATIN CA 10 MG TABLET (FP) PO SCH (21:02)
[2020-05-22] MEDS: INSULIN (LEVEMIR) 100 UNITS/ML UNITS SQ SCH ×2 (06:39→21:13)
[2020-05-22] MEDS: INSULIN SLIDING SCALE (NOVOLOG) 1 VIAL SQ SCH ×5 (06:47→21:14)
[2020-05-22] MEDS ORDERED: INSULIN (NOVOLOG) ASPART 100 UNITS/ML 10ML VIAL ONE (06:50)
[2020-05-22] MEDS: LACTATED RINGERS SOLUTION 1,000 ML/1,000 ML INFUS.BAG IV SCH (08:36)
[2020-05-22] MEDS ORDERED: FUROSEMIDE 40 MG/4 ML INJECTABLE VIAL IVPUSH ONE (08:56)
[2020-05-22 09:09] LABS: BASO % 0.1 % (0-2.0); EOS % 0.2 % (0-4.5); HEMATOCRIT 37.3 % (35.4-49); HEMOGLOBIN 12.4 GM/dL (11.7-16.9); LYMPH % 17.8 % (8-40); MCH 29.2 pg (25.7-33.7); MCHC 33.4 g/dl (32.0-35.9); MEAN CELL VOLUME 87.5 fl (80-96); MONO % 12.7 % (3.8-10.2); NEUT % 69.2 % (42.8-82.8); PLATELET COUNT 178 K/MM3 (134-434); RBC 4.26 M/mm3 (4.00-5.60); RDW 13.4 % (11.9-15.9); WHITE BLOOD COUNT 6.7 K/mm3 (4.0-10.0)
[2020-05-22] MEDS: guaiFENesin/CODEINE 5 ML UNIT-DOSE CUPS PO PRN ×2 (09:21→21:25)
[2020-05-22] MEDS: ASCORBIC ACID 500 MG TABLET (FP) PO SCH ×2 (09:22→21:13)
[2020-05-22] MEDS: APIXABAN 5 MG TABLET PO SCH ×2 (09:22→21:13)
[2020-05-22] MEDS: ZINC SULFATE 220 MG CAPSULE (FP) PO SCH (09:22)
[2020-05-22] MEDS: DEXAMETHASONE SOD PHOSPHATE 4 MG/1 ML VIAL IVPUSH SCH (09:23)
[2020-05-22 09:33] LABS: CALCIUM 8.1 mg/dL (8.5-10.1)
[2020-05-22 09:34] LABS: ALBUMIN 2.6 g/dl (3.4-5.0); BLOOD UREA NITROGEN 15.6 mg/dL (7-18)
[2020-05-22 09:37] LABS: CREATININE 0.6 mg/dL (0.55-1.3)
[2020-05-22 09:38] LABS: BILIRUBIN,TOTAL 0.6 mg/dL (0.2-1); TOT PROT 5.6 g/dl (6.4-8.2)
[2020-05-22] MEDS: FAMOTIDINE 20 MG TABLET PO SCH ×2 (12:02→21:13)
[2020-05-22] MEDS: REMDESIVIR 100 MG in SODIUM CHLORIDE 230 ML IVPB SCH (16:34)
[2020-05-22] MEDS: ATORVASTATIN CA 10 MG TABLET (FP) PO SCH (21:13)
[2020-05-23] MEDS: INSULIN SLIDING SCALE (NOVOLOG) 1 VIAL SQ SCH ×4 (06:18→22:41)
[2020-05-23 08:33] LABS: ALBUMIN 2.3 g/dl (3.4-5.0); CALCIUM 7.7 mg/dL (8.5-10.1); MAGNESIUM 1.7 mg/dL (1.8-2.4)
[2020-05-23 08:35] LABS: PHOSPHOROUS 3.2 mg/dL (2.5-4.9)
[2020-05-23 08:36] LABS: BILIRUBIN,TOTAL 0.8 mg/dL (0.2-1); CREATININE 0.6 mg/dL (0.55-1.3); TOT PROT 5.4 g/dl (6.4-8.2)
[2020-05-23 08:55] LABS: BASO % 0.2 % (0-2.0); EOS % 0.4 % (0-4.5); HEMATOCRIT 34.9 % (35.4-49); LYMPH % 17.5 % (8-40); MCH 29.8 pg (25.7-33.7); MCHC 34.3 g/dl (32.0-35.9); MEAN CELL VOLUME 86.8 fl (80-96); MEAN PLT VOLUME 10.2 fl (7.5-11.1); MONO % 13.6 % (3.8-10.2); NEUT % 68.3 % (42.8-82.8); PLATELET COUNT 190 K/MM3 (134-434); RBC 4.02 M/mm3 (4.00-5.60); RDW 13.3 % (11.9-15.9)
[2020-05-23] MEDS: ZINC SULFATE 220 MG CAPSULE (FP) PO SCH (10:48)
[2020-05-23] MEDS: APIXABAN 5 MG TABLET PO SCH ×2 (10:48→22:31)
[2020-05-23] MEDS: DEXAMETHASONE SOD PHOSPHATE 4 MG/1 ML VIAL IVPUSH SCH (10:48)
[2020-05-23] MEDS: INSULIN (LEVEMIR) 100 UNITS/ML UNITS SQ SCH ×2 (10:48→22:43)
[2020-05-23] MEDS: ASCORBIC ACID 500 MG TABLET (FP) PO SCH ×2 (10:48→22:31)
[2020-05-23] MEDS: FAMOTIDINE 20 MG TABLET PO SCH ×2 (10:48→22:31)
[2020-05-23 11:35] LABS: ERYTHROCYTE SEDIMENTATION RATE 34 mm/hr (0-20)
[2020-05-23] MEDS: ACETAMINOPHEN 325 MG TABLET (FP) PO PRN (11:38)
[2020-05-23] MEDS: ATORVASTATIN CA 10 MG TABLET (FP) PO SCH (22:32)
[2020-05-23] MEDS ORDERED: POTASSIUM CHLORIDE TABS 20 MEQ TABLET.ER (FP) PO ONE (23:48)
[2020-05-24] MEDS: INSULIN SLIDING SCALE (NOVOLOG) 1 VIAL SQ SCH ×4 (06:39→21:38)
[2020-05-24] MEDS: DEXAMETHASONE SOD PHOSPHATE 4 MG/1 ML VIAL IVPUSH SCH (09:02)
[2020-05-24] MEDS: APIXABAN 5 MG TABLET PO SCH ×2 (09:02→21:37)
[2020-05-24] MEDS: FAMOTIDINE 20 MG TABLET PO SCH ×2 (09:02→21:37)
[2020-05-24] MEDS: ASCORBIC ACID 500 MG TABLET (FP) PO SCH ×2 (09:02→21:37)
[2020-05-24] MEDS: guaiFENesin/CODEINE 5 ML UNIT-DOSE CUPS PO PRN (09:03)
[2020-05-24] MEDS: ZINC SULFATE 220 MG CAPSULE (FP) PO SCH (09:19)
[2020-05-24 10:06] LABS: BASO % 0.2 % (0-2.0); EOS % 0.5 % (0-4.5); HEMATOCRIT 41.7 % (35.4-49); LYMPH % 12.5 % (8-40); MCH 29.4 pg (25.7-33.7); MCHC 33.5 g/dl (32.0-35.9); MEAN CELL VOLUME 87.6 fl (80-96); MEAN PLT VOLUME 9.6 fl (7.5-11.1); MONO % 11.6 % (3.8-10.2); NEUT % 75.2 % (42.8-82.8); PLATELET COUNT 284 K/MM3 (134-434); RBC 4.76 M/mm3 (4.00-5.60); RDW 13.5 % (11.9-15.9); WHITE BLOOD COUNT 9.8 K/mm3 (4.0-10.0)
[2020-05-24 10:36] LABS: ALBUMIN 2.7 g/dl (3.4-5.0); BLOOD UREA NITROGEN 16.8 mg/dL (7-18); CALCIUM 8.6 mg/dL (8.5-10.1)
[2020-05-24 10:39] LABS: CREATININE 0.7 mg/dL (0.55-1.3)
[2020-05-24 10:41] LABS: BILIRUBIN,TOTAL 0.8 mg/dL (0.2-1); TOT PROT 6.5 g/dl (6.4-8.2)
[2020-05-24] MEDS: INSULIN (LEVEMIR) 100 UNITS/ML UNITS SQ SCH ×2 (11:27→21:37)
[2020-05-24] MEDS: ATORVASTATIN CA 10 MG TABLET (FP) PO SCH (21:37)
[2020-05-25] MEDS ORDERED: ACETAMINOPHEN 325 MG TABLET (FP) PO PRN (00:24)
[2020-05-25 06:36] LABS: BASO % 0.2 % (0-2.0); EOS % 0.7 % (0-4.5); HEMATOCRIT 36.9 % (35.4-49); HEMOGLOBIN 12.7 GM/dL (11.7-16.9); LYMPH % 14.1 % (8-40); MCH 29.7 pg (25.7-33.7); MCHC 34.3 g/dl (32.0-35.9); MEAN CELL VOLUME 86.4 fl (80-96); MEAN PLT VOLUME 8.8 fl (7.5-11.1); MONO % 11.3 % (3.8-10.2); NEUT % 73.7 % (42.8-82.8); PLATELET COUNT 282 K/MM3 (134-434); RBC 4.27 M/mm3 (4.00-5.60); RDW 13.6 % (11.9-15.9); WHITE BLOOD COUNT 8.5 K/mm3 (4.0-10.0)
[2020-05-25 06:54] LABS: ALBUMIN 2.4 g/dl (3.4-5.0); BLOOD UREA NITROGEN 20.9 mg/dL (7-18); CALCIUM 8.1 mg/dL (8.5-10.1)
[2020-05-25 06:57] LABS: CREATININE 0.6 mg/dL (0.55-1.3)
[2020-05-25 06:59] LABS: BILIRUBIN,TOTAL 0.8 mg/dL (0.2-1); TOT PROT 5.7 g/dl (6.4-8.2)
[2020-05-25] MEDS: INSULIN SLIDING SCALE (NOVOLOG) 1 VIAL SQ SCH ×4 (07:30→21:53)
[2020-05-25] MEDS: ASCORBIC ACID 500 MG TABLET (FP) PO SCH ×2 (10:43→21:52)
[2020-05-25] MEDS: APIXABAN 5 MG TABLET PO SCH ×2 (10:43→21:52)
[2020-05-25] MEDS: DEXAMETHASONE SOD PHOSPHATE 4 MG/1 ML VIAL IVPUSH SCH (10:43)
[2020-05-25] MEDS: ZINC SULFATE 220 MG CAPSULE (FP) PO SCH (10:43)
[2020-05-25] MEDS: FAMOTIDINE 20 MG TABLET PO SCH ×2 (10:43→21:51)
[2020-05-25] MEDS: INSULIN (LEVEMIR) 100 UNITS/ML UNITS SQ SCH ×2 (10:54→21:53)
[2020-05-25] MEDS: ATORVASTATIN CA 40 MG TABLET (FP) PO SCH (21:52)
[2020-05-25] MEDS: diphenhydrAMINE HCL 25 MG CAPSULE (FP) PO SCH (21:52)
[2020-05-26 06:49] LABS: BASO % 0.3 % (0-2.0); HEMATOCRIT 36.5 % (35.4-49); HEMOGLOBIN 12.6 GM/dL (11.7-16.9); LYMPH % 16.2 % (8-40); MCH 29.8 pg (25.7-33.7); MCHC 34.5 g/dl (32.0-35.9); MEAN CELL VOLUME 86.5 fl (80-96); MEAN PLT VOLUME 9.1 fl (7.5-11.1); MONO % 13.5 % (3.8-10.2); PLATELET COUNT 282 K/MM3 (134-434); RBC 4.21 M/mm3 (4.00-5.60); RDW 13.2 % (11.9-15.9); WHITE BLOOD COUNT 7.4 K/mm3 (4.0-10.0)
[2020-05-26 07:06] LABS: ALBUMIN 2.4 g/dl (3.4-5.0); BLOOD UREA NITROGEN 17.5 mg/dL (7-18); MAGNESIUM 1.7 mg/dL (1.8-2.4)
[2020-05-26 07:09] LABS: CREATININE 0.6 mg/dL (0.55-1.3)
[2020-05-26 07:10] LABS: PHOSPHOROUS 3.9 mg/dL (2.5-4.9)
[2020-05-26 07:11] LABS: TOT PROT 5.8 g/dl (6.4-8.2)
[2020-05-26 07:31] LABS: ERYTHROCYTE SEDIMENTATION RATE 44 mm/hr (0-20)
[2020-05-26] MEDS: INSULIN SLIDING SCALE (NOVOLOG) 1 VIAL SQ SCH ×4 (08:03→22:27)
[2020-05-26] MEDS: ZINC SULFATE 220 MG CAPSULE (FP) PO SCH (10:28)
[2020-05-26] MEDS: DEXAMETHASONE SOD PHOSPHATE 4 MG/1 ML VIAL IVPUSH SCH (10:28)
[2020-05-26] MEDS: ASCORBIC ACID 500 MG TABLET (FP) PO SCH ×2 (10:29→22:24)
[2020-05-26] MEDS: FAMOTIDINE 20 MG TABLET PO SCH ×2 (10:29→22:26)
[2020-05-26] MEDS: APIXABAN 5 MG TABLET PO SCH ×2 (10:29→22:26)
[2020-05-26] MEDS: INSULIN (LEVEMIR) 100 UNITS/ML UNITS SQ SCH ×2 (10:29→22:26)
[2020-05-26] MEDS: ATORVASTATIN CA 40 MG TABLET (FP) PO SCH (22:25)
[2020-05-26] MEDS: diphenhydrAMINE HCL 25 MG CAPSULE (FP) PO SCH (22:26)
[2020-05-27 06:22] LABS: BASO % 0.7 % (0-2.0); EOS % 0.1 % (0-4.5); HEMATOCRIT 38.6 % (35.4-49); HEMOGLOBIN 13.1 GM/dL (11.7-16.9); LYMPH % 10.9 % (8-40); MCH 29.5 pg (25.7-33.7); MCHC 33.9 g/dl (32.0-35.9); MEAN CELL VOLUME 87.1 fl (80-96); MEAN PLT VOLUME 8.6 fl (7.5-11.1); MONO % 12.6 % (3.8-10.2); NEUT % 75.7 % (42.8-82.8); PLATELET COUNT 288 K/MM3 (134-434); RBC 4.43 M/mm3 (4.00-5.60); RDW 13.4 % (11.9-15.9); WHITE BLOOD COUNT 9.1 K/mm3 (4.0-10.0)
[2020-05-27] MEDS: INSULIN SLIDING SCALE (NOVOLOG) 1 VIAL SQ SCH ×4 (06:24→23:56)
[2020-05-27 06:43] LABS: ALBUMIN 2.4 g/dl (3.4-5.0); CALCIUM 8.3 mg/dL (8.5-10.1)
[2020-05-27 06:44] LABS: BLOOD UREA NITROGEN 17.9 mg/dL (7-18); MAGNESIUM 1.9 mg/dL (1.8-2.4)
[2020-05-27 06:46] LABS: PHOSPHOROUS 3.7 mg/dL (2.5-4.9)
[2020-05-27 06:47] LABS: CREATININE 0.6 mg/dL (0.55-1.3)
[2020-05-27 06:48] LABS: TOT PROT 6.2 g/dl (6.4-8.2)
[2020-05-27 07:54] LABS: ERYTHROCYTE SEDIMENTATION RATE 71 mm/hr (0-20)
[2020-05-27] MEDS: ASCORBIC ACID 500 MG TABLET (FP) PO SCH ×2 (11:32→22:02)
[2020-05-27] MEDS: ZINC SULFATE 220 MG CAPSULE (FP) PO SCH (11:32)
[2020-05-27] MEDS: APIXABAN 5 MG TABLET PO SCH ×2 (11:32→22:03)
[2020-05-27] MEDS: DEXAMETHASONE SOD PHOSPHATE 4 MG/1 ML VIAL IVPUSH SCH (11:32)
[2020-05-27] MEDS: FAMOTIDINE 20 MG TABLET PO SCH ×2 (11:34→22:03)
[2020-05-27] MEDS: INSULIN (LEVEMIR) 100 UNITS/ML UNITS SQ SCH ×2 (11:34→22:06)
[2020-05-27] MEDS ORDERED: REMDESIVIR 200 MG in SODIUM CHLORIDE 210 ML IVPB ONE (12:48)
[2020-05-27] MEDS: diphenhydrAMINE HCL 25 MG CAPSULE (FP) PO SCH (22:02)
[2020-05-27] MEDS: ATORVASTATIN CA 40 MG TABLET (FP) PO SCH (23:19)
[2020-05-28] MEDS: INSULIN SLIDING SCALE (NOVOLOG) 1 VIAL SQ SCH ×4 (06:04→21:18)
[2020-05-28 06:49] LABS: BASO % 0.3 % (0-2.0); EOS % 0.2 % (0-4.5); HEMATOCRIT 39.7 % (35.4-49); LYMPH % 11.7 % (8-40); MCH 28.8 pg (25.7-33.7); MCHC 32.7 g/dl (32.0-35.9); MEAN PLT VOLUME 8.7 fl (7.5-11.1); MONO % 10.6 % (3.8-10.2); NEUT % 77.2 % (42.8-82.8); PLATELET COUNT 312 K/MM3 (134-434); RBC 4.51 M/mm3 (4.00-5.60); RDW 13.4 % (11.9-15.9); WHITE BLOOD COUNT 11.7 K/mm3 (4.0-10.0)
[2020-05-28 07:20] LABS: ALBUMIN 2.5 g/dl (3.4-5.0); MAGNESIUM 1.9 mg/dL (1.8-2.4)
[2020-05-28 07:21] LABS: BLOOD UREA NITROGEN 17.9 mg/dL (7-18)
[2020-05-28 07:23] LABS: PHOSPHOROUS 3.8 mg/dL (2.5-4.9)
[2020-05-28 07:24] LABS: CREATININE 0.6 mg/dL (0.55-1.3)
[2020-05-28 07:25] LABS: BILIRUBIN,TOTAL 0.8 mg/dL (0.2-1); CALCIUM 8.6 mg/dL (8.5-10.1)
[2020-05-28 07:26] LABS: TOT PROT 6.5 g/dl (6.4-8.2)
[2020-05-28 07:29] LABS: ERYTHROCYTE SEDIMENTATION RATE 81 mm/hr (0-20)
[2020-05-28] MEDS: guaiFENesin/CODEINE 10 ML UNIT-DOSE CUPS PO PRN (08:08)
[2020-05-28] MEDS ORDERED: PIPERACILLIN/TAZOB 3.375 GM 3.375 GM in DEXTROSE 5%-WATER - 50 ML IVPB SCH (08:56)
[2020-05-28] MEDS ORDERED: DEXTROSE 5%-WATER - 50 ML IVPB ONE ×2 (09:51→16:32)
[2020-05-28] MEDS ORDERED: PIPERACILLIN/TAZOBACTAM 3.375 GM VIAL IVPB ONE ×2 (09:51→16:31)
[2020-05-28] MEDS: DEXAMETHASONE SOD PHOSPHATE 4 MG/1 ML VIAL IVPUSH SCH (10:08)
[2020-05-28] MEDS: PIPERACILLIN/TAZOB 3.375 GM 3.375 GM in DEXTROSE 5%-WATER - 50 ML IVPB SCH ×2 (10:10→17:42)
[2020-05-28] MEDS ORDERED: DEXTROSE 5%-WATER 100 ML IVPB ONE ×2 (11:44→16:32)
[2020-05-28] MEDS ORDERED: CEFEPIME HCL 1 GM VIAL (RESTRICTED TO ID) ONE ×2 (11:44→16:32)
[2020-05-28] MEDS: FAMOTIDINE 20 MG TABLET PO SCH ×2 (11:47→21:16)
[2020-05-28] MEDS: ASCORBIC ACID 500 MG TABLET (FP) PO SCH ×2 (11:47→21:15)
[2020-05-28] MEDS: APIXABAN 5 MG TABLET PO SCH ×2 (11:48→21:16)
[2020-05-28] MEDS: ZINC SULFATE 220 MG CAPSULE (FP) PO SCH (11:50)
[2020-05-28] MEDS: CEFEPIME 1 GM in DEXTROSE 5%-WATER 100 ML IVPB SCH ×2 (11:50→17:13)
[2020-05-28] MEDS ORDERED: REMDESIVIR 100 MG in SODIUM CHLORIDE 230 ML IVPB SCH (13:00)
[2020-05-28] MEDS: MUPIROCIN 2% TOPICAL OINTMENT FOR DECOLONIZATION NS SCH (16:06)
[2020-05-28] MEDS: diphenhydrAMINE HCL 25 MG CAPSULE (FP) PO SCH (21:15)
[2020-05-28] MEDS: INSULIN (LEVEMIR) 100 UNITS/ML UNITS SQ SCH (21:16)
[2020-05-28] MEDS: ATORVASTATIN CA 40 MG TABLET (FP) PO SCH (21:16)
[2020-05-29] MEDS: MUPIROCIN 2% TOPICAL OINTMENT FOR DECOLONIZATION NS SCH ×3 (00:10→23:55)
[2020-05-29] MEDS: CHLORHEXIDINE GLUCONATE 4% CLEANSER FOR DECOLONIZATION TP SCH ×2 (00:10→22:22)
[2020-05-29] MEDS ORDERED: PIPERACILLIN/TAZOBACTAM 3.375 GM VIAL IVPB ONE (00:42)
[2020-05-29] MEDS ORDERED: DEXTROSE 5%-WATER - 50 ML IVPB ONE (00:43)
[2020-05-29] MEDS: guaiFENesin/CODEINE 10 ML UNIT-DOSE CUPS PO PRN (00:48)
[2020-05-29] MEDS: PIPERACILLIN/TAZOB 3.375 GM 3.375 GM in DEXTROSE 5%-WATER - 50 ML IVPB SCH (01:01)
[2020-05-29] MEDS ORDERED: RAPID SEQUENCE INTUBATION KIT NR ONE (01:15)
[2020-05-29] MEDS ORDERED: LORazepam 2 MG/ML SDV VIAL IVPUSH ONE ×3 (03:29→22:51)
[2020-05-29] MEDS ORDERED: ACETAMINOPHEN 325 MG TABLET (FP) PO PRN (04:39)
[2020-05-29] MEDS: INSULIN SLIDING SCALE (NOVOLOG) 1 VIAL SQ SCH ×4 (06:59→22:48)
[2020-05-29 08:11] LABS: BASO % 0.2 % (0-2.0); EOS % 0.1 % (0-4.5); HEMATOCRIT 39.5 % (35.4-49); HEMOGLOBIN 13.6 GM/dL (11.7-16.9); LYMPH % 4.6 % (8-40); MCH 29.9 pg (25.7-33.7); MCHC 34.4 g/dl (32.0-35.9); MEAN CELL VOLUME 86.9 fl (80-96); MEAN PLT VOLUME 8.5 fl (7.5-11.1); MONO % 6.8 % (3.8-10.2); NEUT % 88.3 % (42.8-82.8); PLATELET COUNT 269 K/MM3 (134-434); RBC 4.54 M/mm3 (4.00-5.60); RDW 13.5 % (11.9-15.9); WHITE BLOOD COUNT 17.9 K/mm3 (4.0-10.0)
[2020-05-29 08:33] LABS: ALBUMIN 2.2 g/dl (3.4-5.0); CALCIUM 7.9 mg/dL (8.5-10.1)
[2020-05-29 08:34] LABS: BLOOD UREA NITROGEN 21.4 mg/dL (7-18); MAGNESIUM 1.7 mg/dL (1.8-2.4)
[2020-05-29 08:37] LABS: CREATININE 0.7 mg/dL (0.55-1.3); PHOSPHOROUS 2.2 mg/dL (2.5-4.9)
[2020-05-29 08:38] LABS: BILIRUBIN,TOTAL 1.3 mg/dL (0.2-1)
[2020-05-29] MEDS: DEXAMETHASONE SOD PHOSPHATE 4 MG/1 ML VIAL IVPUSH SCH (09:34)
[2020-05-29] MEDS: LACTATED RINGERS SOLUTION 1,000 ML/1,000 ML INFUS.BAG IV SCH ×2 (09:34→20:35)
[2020-05-29] MEDS ORDERED: APIXABAN 5 MG TABLET PO SCH (10:00)
[2020-05-29] MEDS ORDERED: FAMOTIDINE 20 MG TABLET PO SCH (10:00)
[2020-05-29] MEDS ORDERED: PIPERACILLIN/TAZOB 3.375 GM 3.375 GM in DEXTROSE 5%-WATER - 50 ML IVPB SCH (10:00)
[2020-05-29] MEDS ORDERED: CEFEPIME HCL/D5W 1 GM/50 ML BAG IVPB SCH (10:00)
[2020-05-29 10:15] LABS: ERYTHROCYTE SEDIMENTATION RATE 77 mm/hr (0-20)
[2020-05-29] MEDS ORDERED: INSULIN (LEVEMIR) 100 UNITS/ML UNITS SQ ONE (10:55)
[2020-05-29] MEDS: INSULIN (LEVEMIR) 100 UNITS/ML UNITS SQ SCH ×2 (10:58→22:30)
[2020-05-29] MEDS: ENOXAPARIN NA (PORCINE) 80 MG/0.8 ML DISP.SYRIN SQ SCH ×2 (11:00→22:23)
[2020-05-29] MEDS: FAMOTIDINE 20 MG/50 ML IVPB 20 MG/50 ML MG IVPB SCH (11:00)
[2020-05-29] MEDS ORDERED: ACETAMINOPHEN 1000 MG/100 ML BAG IVPB SCH (11:15)
[2020-05-29] MEDS: ASCORBIC ACID 500 MG TABLET (FP) PO SCH (12:05)
[2020-05-29] MEDS: ZINC SULFATE 220 MG CAPSULE (FP) PO SCH (12:06)
[2020-05-29] MEDS ORDERED: diphenhydrAMINE HCL 25 MG CAPSULE (FP) PO SCH (22:00)
[2020-05-29] MEDS ORDERED: LORazepam 2 MG/ML SDV VIAL ONE (22:55)
[2020-05-30] MEDS ORDERED: MAGNESIUM SULF 50% (8.12 MEQ/2 ML-1 GM VIAL) IVPB ONE (01:01)
[2020-05-30] MEDS: LACTATED RINGERS SOLUTION 1,000 ML/1,000 ML INFUS.BAG IV SCH ×2 (06:08→18:48)
[2020-05-30] MEDS: INSULIN SLIDING SCALE (NOVOLOG) 1 VIAL SQ SCH ×4 (06:31→21:05)
[2020-05-30 07:50] LABS: BASO % 0.2 % (0-2.0); HEMATOCRIT 44.5 % (35.4-49); HEMOGLOBIN 14.9 GM/dL (11.7-16.9); LYMPH % 5.7 % (8-40); MCH 29.5 pg (25.7-33.7); MCHC 33.4 g/dl (32.0-35.9); MEAN CELL VOLUME 88.1 fl (80-96); MEAN PLT VOLUME 9.2 fl (7.5-11.1); MONO % 4.6 % (3.8-10.2); NEUT % 89.5 % (42.8-82.8); PLATELET COUNT 281 K/MM3 (134-434); RBC 5.05 M/mm3 (4.00-5.60); RDW 13.7 % (11.9-15.9); WHITE BLOOD COUNT 22.4 K/mm3 (4.0-10.0)
[2020-05-30 08:18] LABS: ALBUMIN 2.1 g/dl (3.4-5.0); BLOOD UREA NITROGEN 24.2 mg/dL (7-18); CALCIUM 8.3 mg/dL (8.5-10.1); MAGNESIUM 2.5 mg/dL (1.8-2.4)
[2020-05-30 08:20] LABS: BILIRUBIN,TOTAL 0.8 mg/dL (0.2-1)
[2020-05-30 08:21] LABS: CREATININE 0.9 mg/dL (0.55-1.3); PHOSPHOROUS 2.3 mg/dL (2.5-4.9); TOT PROT 6.1 g/dl (6.4-8.2)
[2020-05-30] MEDS ORDERED: PT OWN MED DRAWER 7, Y5N ONE ×2 (08:31→09:43)
[2020-05-30] MEDS: guaiFENesin/CODEINE 10 ML UNIT-DOSE CUPS PO PRN (09:00)
[2020-05-30 09:44] LABS: ANISOCYTOSIS 0; HELMET CELLS 0; HOWELL-JOLLY BODIES 0; MACROCYTOSIS 0; OVALOCYTE 0; PLATELET ESTIMATE NORMAL; ROULEAU 0; SICKELED CELLS 0; TARGET CELLS 0; TEAR DROP CELLS 0; TOXIC GRANULATION 0
[2020-05-30] MEDS: ENOXAPARIN NA (PORCINE) 80 MG/0.8 ML DISP.SYRIN SQ SCH ×2 (10:30→21:01)
[2020-05-30] MEDS: MUPIROCIN 2% TOPICAL OINTMENT FOR DECOLONIZATION NS SCH ×2 (10:30→21:02)
[2020-05-30] MEDS: DEXAMETHASONE SOD PHOSPHATE 4 MG/1 ML VIAL IVPUSH SCH (10:30)
[2020-05-30] MEDS: FAMOTIDINE 20 MG/50 ML IVPB 20 MG/50 ML MG IVPB SCH (10:30)
[2020-05-30] MEDS: INSULIN (LEVEMIR) 100 UNITS/ML UNITS SQ SCH (10:31)
[2020-05-30] MEDS: CEFEPIME 2 GM in DEXTROSE 5%-WATER 100 ML IVPB SCH ×2 (12:42→17:51)
[2020-05-30] MEDS ORDERED: RAPID SEQUENCE INTUBATION KIT NR ONE (17:04)
[2020-05-30] MEDS ORDERED: PROPOFOL 1,000,000 MCG/100 ML VIAL ONE ×2 (17:11→18:13)
[2020-05-30 18:13] LABS: ARTERIAL BLD GAS O2 SATURATION 58.8 mmHg (95-98); ARTERIAL BLOOD GAS BASE EXCESS -14.1 mmol/L (-2-2); ARTERIAL BLOOD GAS PO2 44.8 mmHg (80-100); ARTERIAL BLOOD GAS pH 7.021 (7.350-7.450)
[2020-05-30] MEDS ORDERED: METOPROLOL TARTRATE 5 MG/5 ML VIAL IVPUSH ONE (18:14)
[2020-05-30] MEDS ORDERED: METOPROLOL TARTRATE 5 MG/5 ML VIAL ONE (18:16)
[2020-05-30] MEDS: PROPOFOL 1,000,000 MCG/100 ML VIAL IVPB SCH ×2 (18:26→23:00)
[2020-05-30 18:38] LABS: VENT MODE VOC/AC; VENT RATE 20
[2020-05-30 18:42] LABS: ALLENS TEST POSITIVE
[2020-05-30] MEDS ORDERED: FENTANYL IVPB 500 MCG/100 ML BAG IVPB ONE (19:49)
[2020-05-30] MEDS ORDERED: MIDAZOLAM 100 MG/100 ML MG IVPB ONE (20:12)
[2020-05-30] MEDS: FENTANYL NS IVPB 500 MCG/100 ML BAG IVPB SCH (20:35)
[2020-05-30] MEDS: MIDAZOLAM 100 MG in SODIUM CHLORIDE 100 ML IVPB SCH (20:36)
[2020-05-30] MEDS: ACETAMINOPHEN 1000 MG/100 ML BAG IVPB PRN (20:37)
[2020-05-30] MEDS: CHLORHEXIDINE GLUCONATE 4% CLEANSER FOR DECOLONIZATION TP SCH (21:02)
[2020-05-30] MEDS: PIPERACILLIN/TAZOB 3.375 GM 3.375 GM in DEXTROSE 5%-WATER - 50 ML IVPB SCH (21:38)
[2020-05-30] MEDS ORDERED: ROCURONIUM BROMIDE 50 MG/5 ML VIAL IVPUSH ONE (23:52)
[2020-05-31] MEDS ORDERED: SODIUM BICARBONATE 8.4% 50 MEQ/50 ML VIAL IVPUSH ONE
[2020-05-31] MEDS: INSULIN (LEVEMIR) 100 UNITS/ML UNITS SQ SCH ×3 (00:06→23:05)
[2020-05-31] MEDS: NOREPINEPHRINE BITARTRATE 8,000 MCG/500 ML BAG IVPB SCH ×2 (01:30→22:06)
[2020-05-31] MEDS ORDERED: MIDAZOLAM IN 0.9 % SOD.CHLORID 1 MG/1 ML PLAST..BAG ONE ×3 (01:43→22:12)
[2020-05-31] MEDS: VECURONIUM BROMIDE 100 MG/100 ML BAG IVPB SCH (01:50)
[2020-05-31] MEDS ORDERED: CEFEPIME 2 GM in DEXTROSE 5%-WATER 2 GM/100 ML BAG IVPB SCH (02:00)
[2020-05-31] MEDS ORDERED: CEFEPIME HCL/D5W 2 GM/50 ML BAG IVPB SCH (02:09)
[2020-05-31] MEDS: MIDAZOLAM 100 MG in SODIUM CHLORIDE 100 ML IVPB SCH ×2 (02:58→22:07)
[2020-05-31] MEDS: FENTANYL NS IVPB 500 MCG/100 ML BAG IVPB SCH ×2 (02:59→22:06)
[2020-05-31] MEDS: CEFEPIME 2 GM in DEXTROSE 5%-WATER 2 GM/100 ML BAG IVPB SCH ×3 (03:02→17:16)
[2020-05-31] MEDS: INSULIN SLIDING SCALE (NOVOLOG) 1 VIAL SQ SCH ×4 (06:00→23:05)
[2020-05-31 07:27] LABS: BASO % 0.1 % (0-2.0); HEMATOCRIT 40.8 % (35.4-49); HEMOGLOBIN 13.1 GM/dL (11.7-16.9); LYMPH % 4.5 % (8-40); MCH 29.4 pg (25.7-33.7); MEAN CELL VOLUME 91.9 fl (80-96); MEAN PLT VOLUME 9.2 fl (7.5-11.1); MONO % 7.1 % (3.8-10.2); NEUT % 88.3 % (42.8-82.8); PLATELET COUNT 363 K/MM3 (134-434); RBC 4.44 M/mm3 (4.00-5.60); RDW 14.5 % (11.9-15.9)
[2020-05-31 07:39] LABS: WHITE BLOOD COUNT 33.3 K/mm3 (4.0-10.0)
[2020-05-31 07:51] LABS: ALBUMIN 1.9 g/dl (3.4-5.0)
[2020-05-31 07:52] LABS: BLOOD UREA NITROGEN 38.7 mg/dL (7-18)
[2020-05-31 07:53] LABS: BILIRUBIN,TOTAL 0.4 mg/dL (0.2-1); TOT PROT 5.8 g/dl (6.4-8.2)
[2020-05-31 07:54] LABS: CREATININE 1.4 mg/dL (0.55-1.3); PHOSPHOROUS 7.7 mg/dL (2.5-4.9)
[2020-05-31 07:55] LABS: MAGNESIUM 2.6 mg/dL (1.8-2.4)
[2020-05-31] MEDS ORDERED: PT OWN MED DRAWER 7, Y5N ONE (08:35)
[2020-05-31 09:07] LABS: ANISOCYTOSIS 1+; MACROCYTOSIS 1+; PLATELET ESTIMATE NORMAL
[2020-05-31] MEDS: ENOXAPARIN NA (PORCINE) 80 MG/0.8 ML DISP.SYRIN SQ SCH ×2 (09:54→22:07)
[2020-05-31] MEDS: DEXAMETHASONE SOD PHOSPHATE 4 MG/1 ML VIAL IVPUSH SCH (09:54)
[2020-05-31] MEDS: MUPIROCIN 2% TOPICAL OINTMENT FOR DECOLONIZATION NS SCH ×2 (09:54→22:07)
[2020-05-31] MEDS: FAMOTIDINE 20 MG/50 ML IVPB 20 MG/50 ML MG IVPB SCH (09:55)
[2020-05-31] MEDS ORDERED: SODIUM PHOSPHATE - 30 MM in DEXTROSE 5%-WATER - 250 ML IVPB ONE (10:00)
[2020-05-31] MEDS ORDERED: SODIUM BICARBONATE 8.4% 50 MEQ/50 ML DISP.SYRIN IVPUSH STA (11:42)
[2020-05-31] MEDS ORDERED: INSULIN REGULAR HUMAN 100 UNITS/ML *VIAL IVPUSH STA (11:42)
[2020-05-31] MEDS ORDERED: DEXTROSE 50%-WATER - 25 GM/50 ML VIAL IVPUSH ONE (11:45)
[2020-05-31] MEDS ORDERED: CALCIUM GLUCONATE 10% - 1,000 MG/10 ML VIAL IVPB ONE (11:45)
[2020-05-31] MEDS ORDERED: SODIUM POLYSTYRENE SULFONATE 15 GM/60 ML BOTTLE PO ONE (11:45)
[2020-05-31] MEDS ORDERED: DEXTROSE 50%-WATER 25 GM/50 ML DISP.SYRIN ONE (12:02)
[2020-05-31] MEDS ORDERED: LACTATED RINGERS SOLUTION 1000 ML INFUS.BAG IV STA (18:27)
[2020-05-31] MEDS ORDERED: VANCOMYCIN 1 GRAM (PRE-DOCKED) 1,000 MG/250 ML BAG IVPB ONE (18:31)
[2020-05-31] MEDS: PROPOFOL 1,000,000 MCG/100 ML VIAL IVPB SCH ×2 (18:58→22:07)
[2020-05-31] MEDS: LACTATED RINGERS SOLUTION 1,000 ML/1,000 ML INFUS.BAG IV SCH (18:59)
[2020-05-31 19:06] LABS: ARTERIAL BLOOD GAS BASE EXCESS -5.4 mmol/L (-2-2)
[2020-05-31 19:14] LABS: ARTERIAL BLOOD GAS pH 6.992 (7.350-7.450)
[2020-05-31 19:15] LABS: ALLENS TEST POSITIVE; ARTERIAL BLOOD GAS PO2 < 15.0 mmHg (80-100)
[2020-05-31 19:16] LABS: VENT MODE A/C; VENT RATE 20
[2020-05-31] MEDS ORDERED: SODIUM BICARBONATE 8.4% 50 MEQ/50 ML DISP.SYRIN IVPUSH ONE ×2 (19:49→21:47)
[2020-05-31] MEDS: ACETAMINOPHEN 1000 MG/100 ML BAG IVPB PRN (20:10)
[2020-05-31 21:41] LABS: ARTERIAL BLD GAS O2 SATURATION 85.3 mmHg (95-98); ARTERIAL BLOOD GAS BASE EXCESS -9.3 mmol/L (-2-2); ARTERIAL BLOOD GAS PO2 83.6 mmHg (80-100)
[2020-05-31 21:42] LABS: VENT MODE A/C; VENT RATE 22
[2020-05-31 21:44] LABS: ARTERIAL BLOOD GAS pH 6.906 (7.350-7.450)
[2020-05-31] MEDS: CHLORHEXIDINE GLUCONATE 4% CLEANSER FOR DECOLONIZATION TP SCH (22:07)
[2020-05-31] MEDS: ATORVASTATIN CA 40 MG TABLET (FP) PO SCH (22:07)
[2020-05-31] MEDS: ASCORBIC ACID 500 MG TABLET (FP) PO SCH (22:07)
[2020-05-31] MEDS: guaiFENesin/CODEINE 10 ML UNIT-DOSE CUPS PO PRN (22:08)
[2020-05-31] MEDS ORDERED: fentaNYL CITRATE 250 MCG/5 ML VIAL ONE (22:12)
[2020-05-31] MEDS: SODIUM BICARBONATE 8.4% 50 MEQ/50 ML VIAL IVPUSH SCH (23:13)
[2020-05-31 23:40] LABS: CALCIUM 7.6 mg/dL (8.5-10.1)
[2020-05-31 23:41] LABS: BLOOD UREA NITROGEN 45.9 mg/dL (7-18)
[2020-05-31 23:44] LABS: CREATININE 2.6 mg/dL (0.55-1.3)
[2020-06-01] MEDS ORDERED: SODIUM BICARBONATE 8.4% 50 MEQ/50 ML VIAL IVPUSH ONE
[2020-06-01] MEDS ORDERED: INSULIN REGULAR HUMAN 100 UNITS/ML *VIAL IVPUSH ONE (00:03)
[2020-06-01] MEDS ORDERED: CALCIUM GLUCONATE 10% - 1,000 MG/10 ML VIAL IVPUSH ONE (00:05)
[2020-06-01] MEDS ORDERED: AMIODARONE IN DEXTROSE,ISO-OSM 150 MG/100 ML BAG IVPB ONE (00:18)
[2020-06-01] MEDS ORDERED: AMIODARONE HCL 150 MG/3 ML VIAL ONE (00:36)
[2020-06-01] MEDS ORDERED: VASOPRESSIN 20 UNITS/ML VIAL IV ONE ×2 (00:43→15:38)
[2020-06-01] MEDS: VASOPRESSIN 40 UNITS in SODIUM CHLORIDE 98 ML IVPB SCH ×2 (00:45→16:59)
[2020-06-01] MEDS ORDERED: PT OWN MED DRAWER 7, Y5N ONE ×2 (00:57→16:52)
[2020-06-01] MEDS: NOREPINEPHRINE BITARTRATE 8,000 MCG/500 ML BAG IVPB SCH ×3 (01:05→17:49)
[2020-06-01] MEDS ORDERED: SODIUM CHLORIDE 0.9% 500 ML INFUS.BAG IV ONE (01:10)
[2020-06-01] MEDS: CEFEPIME 2 GM in DEXTROSE 5%-WATER 2 GM/100 ML BAG IVPB SCH ×3 (01:17→17:03)
[2020-06-01] MEDS: SODIUM BICARBONATE 8.4% 50 MEQ/50 ML VIAL IVPUSH SCH ×6 (01:19→22:08)
[2020-06-01] MEDS: VECURONIUM BROMIDE 100 MG/100 ML BAG IVPB SCH (02:19)
[2020-06-01] MEDS: LACTATED RINGERS SOLUTION 1,000 ML/1,000 ML INFUS.BAG IV SCH ×2 (02:20→13:36)
[2020-06-01] MEDS: VANCOMYCIN 1 GRAM (PRE-DOCKED) 1,000 MG/250 ML BAG IVPB SCH ×2 (05:22→17:51)
[2020-06-01 05:49] LABS: ALLENS TEST POSITIVE; ARTERIAL BLD GAS O2 SATURATION 88.9 mmHg (95-98); ARTERIAL BLOOD GAS BASE EXCESS 2.1 mmol/L (-2-2); ARTERIAL BLOOD GAS PO2 78.3 mmHg (80-100)
[2020-06-01 05:50] LABS: VENT MODE A/C; VENT RATE 28
[2020-06-01 06:09] LABS: ARTERIAL BLOOD GAS pH 7.092 (7.350-7.450)
[2020-06-01] MEDS: INSULIN SLIDING SCALE (NOVOLOG) 1 VIAL SQ SCH ×4 (06:42→22:33)
[2020-06-01] MEDS: ACETAMINOPHEN 1000 MG/100 ML BAG IVPB PRN (06:55)
[2020-06-01 06:58] LABS: HEMATOCRIT 35.9 % (35.4-49); HEMOGLOBIN 11.7 GM/dL (11.7-16.9); MCH 30.1 pg (25.7-33.7); MCHC 32.5 g/dl (32.0-35.9); MEAN CELL VOLUME 92.8 fl (80-96); PLATELET COUNT 136 K/MM3 (134-434); RBC 3.87 M/mm3 (4.00-5.60); RDW 13.7 % (11.9-15.9); WHITE BLOOD COUNT 19.2 K/mm3 (4.0-10.0)
[2020-06-01 07:52] LABS: BLOOD UREA NITROGEN 48.7 mg/dL (7-18); CALCIUM 7.3 mg/dL (8.5-10.1); MAGNESIUM 2.5 mg/dL (1.8-2.4)
[2020-06-01 07:55] LABS: CREATININE 3.3 mg/dL (0.55-1.3); PHOSPHOROUS 8.2 mg/dL (2.5-4.9)
[2020-06-01] MEDS: MUPIROCIN 2% TOPICAL OINTMENT FOR DECOLONIZATION NS SCH ×2 (10:52→22:01)
[2020-06-01] MEDS: DEXAMETHASONE SOD PHOSPHATE 4 MG/1 ML VIAL IVPUSH SCH (10:53)
[2020-06-01] MEDS: ENOXAPARIN NA (PORCINE) 80 MG/0.8 ML DISP.SYRIN SQ SCH ×2 (10:54→22:06)
[2020-06-01] MEDS: FAMOTIDINE 20 MG/50 ML IVPB 20 MG/50 ML MG IVPB SCH (10:54)
[2020-06-01] MEDS: ASCORBIC ACID 500 MG TABLET (FP) PO SCH ×2 (10:55→22:08)
[2020-06-01] MEDS: ZINC SULFATE 220 MG CAPSULE (FP) PO SCH (10:55)
[2020-06-01] MEDS: INSULIN (LEVEMIR) 100 UNITS/ML UNITS SQ SCH ×2 (10:58→22:04)
[2020-06-01] MEDS ORDERED: NOREPINEPHRINE BITARTRATE 8,000 MCG/500 ML BAG IVPB ONE (11:26)
[2020-06-01 12:41] VITALS: BMI 29.0
[2020-06-01] MEDS: FENTANYL NS IVPB 500 MCG/100 ML BAG IVPB SCH ×2 (16:00→21:58)
[2020-06-01] MEDS: SODIUM ZIRCONIUM CYCLOSILICATE (LOKELMA) 5 GM PACKET PO SCH (16:44)
[2020-06-01] MEDS: PROPOFOL 1,000,000 MCG/100 ML VIAL IVPB SCH (17:47)
[2020-06-01] MEDS ORDERED: ACETAMINOPHEN INJECTION 100 ML IVPB ONE (18:47)
[2020-06-01 19:41] LABS: EPI CELLS 7 /uL (0-25.1); HYALINE CASTS 1 /uL (0-3.1); URINE APPEARANCE CLEAR; URINE BACTERIA 223 /uL (0-1359); URINE BILIRUBIN NEGATIVE (NEGATIVE); URINE COLOR YELLOW; URINE GLUCOSE (UA) 1+ (NEGATIVE); URINE KETONE TRACE (NEGATIVE); URINE LEUK ESTERASE NEGATIVE (NEGATIVE); URINE NITRITE NEGATIVE (NEGATIVE); URINE PROTEIN 2+ (NEGATIVE); URINE RBC 8 /uL (0-23.9); URINE UROBILINOGEN 0.2 mg/dL (0.2-1.0); URINE WBC 12 /uL (0-25.8)
[2020-06-01] MEDS ORDERED: [UNRECOGNIZED DRUG - OTHER] IVPB SCH (20:00)
[2020-06-01] MEDS ORDERED: NOREPINEPHRINE IVPB SCH (20:00)
[2020-06-01] MEDS ORDERED: PREMIXED IVPB SCH (20:00)
[2020-06-01] MEDS ORDERED: NS IVPB SCH (20:00)
[2020-06-01] MEDS ORDERED: MIDAZOLAM IN 0.9 % SOD.CHLORID 1 MG/1 ML PLAST..BAG ONE (21:15)
[2020-06-01] MEDS ORDERED: FENTANYL IVPB 500 MCG/100 ML BAG IVPB ONE (21:15)
[2020-06-01] MEDS: NOREPINEPHRINE BITARTRATE 8,000 MCG in SODIUM CHLORIDE 492 ML IV SCH (21:59)
[2020-06-01] MEDS: MIDAZOLAM 100 MG in SODIUM CHLORIDE 100 ML IVPB SCH (21:59)
[2020-06-01] MEDS: CHLORHEXIDINE GLUCONATE 4% CLEANSER FOR DECOLONIZATION TP SCH (22:02)
[2020-06-01] MEDS: ATORVASTATIN CA 40 MG TABLET (FP) PO SCH (22:04)
[2020-06-01] MEDS: METOPROLOL TARTRATE 5 MG/5 ML VIAL IVPUSH PRN (22:33)
[2020-06-02] MEDS: SODIUM BICARBONATE 8.4% 50 MEQ/50 ML VIAL IVPUSH SCH ×6 (01:26→21:35)
[2020-06-02] MEDS: CEFEPIME 2 GM in DEXTROSE 5%-WATER 2 GM/100 ML BAG IVPB SCH ×3 (02:05→17:07)
[2020-06-02] MEDS: VASOPRESSIN 40 UNITS in SODIUM CHLORIDE 98 ML IVPB SCH ×2 (02:07→08:09)
[2020-06-02] MEDS: VECURONIUM BROMIDE 100 MG/100 ML BAG IVPB SCH (04:25)
[2020-06-02] MEDS: INSULIN SLIDING SCALE (NOVOLOG) 1 VIAL SQ SCH ×4 (06:19→21:34)
[2020-06-02] MEDS: VANCOMYCIN 1 GRAM (PRE-DOCKED) 1,000 MG/250 ML BAG IVPB SCH ×2 (06:20→17:09)
[2020-06-02] MEDS: LACTATED RINGERS SOLUTION 1,000 ML/1,000 ML INFUS.BAG IV SCH (06:21)
[2020-06-02 07:50] LABS: BASO % 0.2 % (0-2.0); HEMATOCRIT 34.4 % (35.4-49); HEMOGLOBIN 11.1 GM/dL (11.7-16.9); LYMPH % 5.6 % (8-40); MCH 29.1 pg (25.7-33.7); MCHC 32.3 g/dl (32.0-35.9); MEAN CELL VOLUME 90.2 fl (80-96); MEAN PLT VOLUME 8.9 fl (7.5-11.1); MONO % 7.3 % (3.8-10.2); NEUT % 86.9 % (42.8-82.8); PLATELET COUNT 111 K/MM3 (134-434); RBC 3.81 M/mm3 (4.00-5.60); RDW 13.4 % (11.9-15.9); WHITE BLOOD COUNT 15.3 K/mm3 (4.0-10.0)
[2020-06-02] MEDS ORDERED: MIDAZOLAM IN 0.9 % SOD.CHLORID 1 MG/1 ML PLAST..BAG ONE ×2 (07:53→21:37)
[2020-06-02] MEDS ORDERED: PT OWN MED DRAWER 7, Y5N ONE ×2 (07:54→16:46)
[2020-06-02 07:57] LABS: ALBUMIN 1.6 g/dl (3.4-5.0); BLOOD UREA NITROGEN 62.8 mg/dL (7-18); MAGNESIUM 2.6 mg/dL (1.8-2.4)
[2020-06-02 08:00] LABS: CREATININE 5.1 mg/dL (0.55-1.3); PHOSPHOROUS 8.1 mg/dL (2.5-4.9)
[2020-06-02 08:01] LABS: BILIRUBIN,TOTAL 1.2 mg/dL (0.2-1); TOT PROT 5.2 g/dl (6.4-8.2)
[2020-06-02] MEDS: FENTANYL NS IVPB 500 MCG/100 ML BAG IVPB SCH ×4 (08:05→23:30)
[2020-06-02] MEDS: METOPROLOL TARTRATE 5 MG/5 ML VIAL IVPUSH PRN ×2 (08:10→14:56)
[2020-06-02] MEDS ORDERED: VASOPRESSIN 20 UNITS/ML VIAL IV ONE ×2 (08:12→14:32)
[2020-06-02 08:44] LABS: CALCIUM 6.7 mg/dL (8.5-10.1)
[2020-06-02] MEDS: SODIUM ZIRCONIUM CYCLOSILICATE (LOKELMA) 5 GM PACKET PO SCH (09:54)
[2020-06-02] MEDS: FAMOTIDINE 20 MG/50 ML IVPB 20 MG/50 ML MG IVPB SCH (09:54)
[2020-06-02] MEDS: DEXAMETHASONE SOD PHOSPHATE 4 MG/1 ML VIAL IVPUSH SCH (09:54)
[2020-06-02] MEDS: ZINC SULFATE 220 MG CAPSULE (FP) PO SCH (09:55)
[2020-06-02] MEDS: ASCORBIC ACID 500 MG TABLET (FP) PO SCH ×2 (09:58→21:04)
[2020-06-02] MEDS: INSULIN (LEVEMIR) 100 UNITS/ML UNITS SQ SCH ×2 (09:59→21:16)
[2020-06-02] MEDS: MIDAZOLAM 100 MG in SODIUM CHLORIDE 100 ML IVPB SCH ×2 (11:30→21:03)
[2020-06-02] MEDS: ENOXAPARIN NA (PORCINE) 80 MG/0.8 ML DISP.SYRIN SQ SCH (11:59)
[2020-06-02] MEDS: NOREPINEPHRINE BITARTRATE 8,000 MCG in SODIUM CHLORIDE 492 ML IV SCH (12:00)
[2020-06-02] MEDS: PROPOFOL 1,000,000 MCG/100 ML VIAL IVPB SCH ×2 (12:28→18:48)
[2020-06-02] MEDS: ACETAMINOPHEN 1000 MG/100 ML BAG IVPB PRN ×2 (14:56→21:39)
[2020-06-02] MEDS ORDERED: fentaNYL CITRATE 250 MCG/5 ML VIAL ONE (15:06)
[2020-06-02] MEDS: NOREPINEPHRINE BITARTRATE 16,000 MCG in SODIUM CHLORIDE 484 ML IV SCH (20:10)
[2020-06-02] MEDS: CHLORHEXIDINE GLUCONATE 4% CLEANSER FOR DECOLONIZATION TP SCH (21:03)
[2020-06-02] MEDS: ATORVASTATIN CA 40 MG TABLET (FP) PO SCH (21:03)
[2020-06-03] MEDS: MIDAZOLAM 100 MG in SODIUM CHLORIDE 100 ML IVPB SCH ×4 (00:08→22:00)
[2020-06-03] MEDS ORDERED: CALCIUM GLUCONATE 10% - 1,000 MG/10 ML VIAL IVPB ONE (01:00)
[2020-06-03] MEDS: VASOPRESSIN 40 UNITS in SODIUM CHLORIDE 98 ML IVPB SCH ×2 (01:43→22:00)
[2020-06-03] MEDS: SODIUM BICARBONATE 8.4% 50 MEQ/50 ML VIAL IVPUSH SCH ×5 (01:46→22:09)
[2020-06-03] MEDS: CEFEPIME 2 GM in DEXTROSE 5%-WATER 2 GM/100 ML BAG IVPB SCH ×3 (01:46→17:06)
[2020-06-03] MEDS: VECURONIUM BROMIDE 100 MG/100 ML BAG IVPB SCH (02:58)
[2020-06-03] MEDS ORDERED: METOPROLOL TARTRATE 5 MG/5 ML VIAL ONE (04:34)
[2020-06-03] MEDS ORDERED: METOPROLOL TARTRATE 5 MG/5 ML VIAL IVPUSH ONE (04:41)
[2020-06-03 05:20] LABS: ARTERIAL BLD GAS O2 SATURATION 86.2 mmHg (95-98); ARTERIAL BLOOD GAS BASE EXCESS 0.1 mmol/L (-2-2); ARTERIAL BLOOD GAS PO2 68.4 mmHg (80-100); ARTERIAL BLOOD GAS pH 7.135 (7.350-7.450)
[2020-06-03 05:21] LABS: ALLENS TEST POSITIVE
[2020-06-03 05:22] LABS: VENT MODE A/C; VENT RATE 28
[2020-06-03] MEDS: VANCOMYCIN 1 GRAM (PRE-DOCKED) 1,000 MG/250 ML BAG IVPB SCH (05:56)
[2020-06-03] MEDS: INSULIN SLIDING SCALE (NOVOLOG) 1 VIAL SQ SCH ×4 (06:10→22:19)
[2020-06-03 07:24] LABS: BASO % 0.1 % (0-2.0); HEMOGLOBIN 10.2 GM/dL (11.7-16.9); LYMPH % 6.6 % (8-40); MCH 29.4 pg (25.7-33.7); MCHC 32.8 g/dl (32.0-35.9); MEAN CELL VOLUME 89.7 fl (80-96); MEAN PLT VOLUME 9.5 fl (7.5-11.1); NEUT % 80.3 % (42.8-82.8); PLATELET COUNT 82 K/MM3 (134-434); RBC 3.46 M/mm3 (4.00-5.60); RDW 13.8 % (11.9-15.9); WHITE BLOOD COUNT 13.6 K/mm3 (4.0-10.0)
[2020-06-03] MEDS: ACETAMINOPHEN 1000 MG/100 ML BAG IVPB PRN (07:30)
[2020-06-03 07:33] LABS: INR 1.4 (0.83-1.09); PROTHROMBIN TIME (PATIENT) 16.8 SEC (9.7-13.0)
[2020-06-03 07:35] LABS: ACTIVATED PTT 46.8 SECONDS (25.2-36.5)
[2020-06-03 08:17] LABS: ALBUMIN 1.6 g/dl (3.4-5.0); BILIRUBIN,TOTAL 0.5 mg/dL (0.2-1); BLOOD UREA NITROGEN 77.8 mg/dL (7-18); CREATININE 6.4 mg/dL (0.55-1.3); MAGNESIUM 2.6 mg/dL (1.8-2.4); TOT PROT 5.3 g/dl (6.4-8.2)
[2020-06-03] MEDS: PROPOFOL 1,000,000 MCG/100 ML VIAL IVPB SCH ×4 (08:28→22:00)
[2020-06-03] MEDS: DEXAMETHASONE SOD PHOSPHATE 4 MG/1 ML VIAL IVPUSH SCH (09:27)
[2020-06-03] MEDS: FAMOTIDINE 20 MG/50 ML IVPB 20 MG/50 ML MG IVPB SCH (09:28)
[2020-06-03] MEDS: ENOXAPARIN NA (PORCINE) 40 MG/0.4 ML DISP.SYRIN SQ SCH ×2 (09:28→22:13)
[2020-06-03] MEDS: ASCORBIC ACID 500 MG TABLET (FP) PO SCH ×2 (09:28→22:13)
[2020-06-03] MEDS: ZINC SULFATE 220 MG CAPSULE (FP) PO SCH (09:28)
[2020-06-03] MEDS: SODIUM ZIRCONIUM CYCLOSILICATE (LOKELMA) 5 GM PACKET PO SCH (09:28)
[2020-06-03 09:33] LABS: PHOSPHOROUS 8.1 mg/dL (2.5-4.9)
[2020-06-03 09:39] LABS: CALCIUM 6.6 mg/dL (8.5-10.1)
[2020-06-03] MEDS: INSULIN (LEVEMIR) 100 UNITS/ML UNITS SQ SCH ×2 (09:59→22:12)
[2020-06-03] MEDS ORDERED: ENOXAPARIN NA (PORCINE) 100 MG/1 ML DISP.SYRIN SQ SCH (10:00)
[2020-06-03] MEDS ORDERED: PT OWN MED DRAWER 7, Y5N ONE ×3 (10:02→21:22)
[2020-06-03] MEDS ORDERED: MIDAZOLAM IN 0.9 % SOD.CHLORID 1 MG/1 ML PLAST..BAG ONE ×3 (10:02→22:37)
[2020-06-03] MEDS: FENTANYL NS IVPB 500 MCG/100 ML BAG IVPB SCH ×3 (14:59→22:00)
[2020-06-03] MEDS: NOREPINEPHRINE BITARTRATE 16,000 MCG in SODIUM CHLORIDE 484 ML IV SCH ×2 (20:00→22:00)
[2020-06-03] MEDS: CHLORHEXIDINE GLUCONATE 4% CLEANSER FOR DECOLONIZATION TP SCH (22:10)
[2020-06-03] MEDS: ATORVASTATIN CA 40 MG TABLET (FP) PO SCH (22:13)
[2020-06-04] MEDS ORDERED: PT OWN MED DRAWER 7, Y5N ONE (01:32)
[2020-06-04] MEDS: CEFEPIME 2 GM in DEXTROSE 5%-WATER 2 GM/100 ML BAG IVPB SCH (01:43)
[2020-06-04] MEDS: SODIUM BICARBONATE 8.4% 50 MEQ/50 ML VIAL IVPUSH SCH (01:43)
[2020-06-04] MEDS ORDERED: DOPAMINE 400 MG/D5W - 400,000 MCG/250 ML INFUS.BAG IVPB SCH (01:45)
[2020-06-04] MEDS: ACETAMINOPHEN 1000 MG/100 ML BAG IVPB PRN (02:29)
[2020-06-04] MEDS: VECURONIUM BROMIDE 100 MG/100 ML BAG IVPB SCH (02:36)
[2020-06-04 03:05] VITALS: TEMP 101.2
[2020-06-04 04:02] VITALS: BP 44/30; PULSE 58
== END 2020-06-04 05:27 | disposition expired | DRG 207 ==
LOC: JER 13:08 → JERBED 18:04 → J5S 05-18 14:28 → J4S 05-24 21:13 → JICU 05-28 09:42
PROVIDERS: ADMIT Internal Medicine; ATTEND Internal Medicine Pulmonary Disease
PROC: 8E0ZXY6 Isolation (ICD-10-PCS; 2020-05-17)
PROC: XW033E5 Introduction of Remdesivir Anti-infective into Peripheral Vein, Percutaneous Approach, New Technology Group 5 (ICD-10-PCS; 2020-05-18)
PROC: XW13325 Transfusion of Convalescent Plasma (Nonautologous) into Peripheral Vein, Percutaneous Approach, New Technology Group 5 (ICD-10-PCS; 2020-05-27)
PROC: 0CHY7BZ Insertion of Airway into Mouth and Throat, Via Natural or Artificial Opening (ICD-10-PCS; principal; 2020-05-30)
PROC: 5A1955Z Respiratory Ventilation, Greater than 96 Consecutive Hours (ICD-10-PCS; 2020-05-30)
PROC: 05HM33Z Insertion of Infusion Device into Right Internal Jugular Vein, Percutaneous Approach (ICD-10-PCS; 2020-05-31)
PROC: B543ZZA Ultrasonography of Right Jugular Veins, Guidance (ICD-10-PCS; 2020-05-31)
DX: U07.1 COVID-19 (principal); J12.82 Pneumonia due to coronavirus disease 2019; J80 Acute respiratory distress syndrome; A41.9 Sepsis, unspecified organism; R65.21 Severe sepsis with septic shock; I48.92 Unspecified atrial flutter; I10 Essential (primary) hypertension; E78.5 Hyperlipidemia, unspecified; I25.10 Atherosclerotic heart disease of native coronary artery without angina pectoris; E78.00 Pure hypercholesterolemia, unspecified; I46.9 Cardiac arrest, cause unspecified; E11.319 Type 2 diabetes mellitus with unspecified diabetic retinopathy without macular edema; E11.65 Type 2 diabetes mellitus with hyperglycemia; E66.9 Obesity, unspecified; Z68.35 Body mass index [BMI] 35.0-35.9, adult; E87.5 Hyperkalemia; I95.9 Hypotension, unspecified; R19.7 Diarrhea, unspecified
CPT/HCPCS: 31500; 36415; 36430; 36600; 71045-TC-FY; 80048; 80053; 81003; 82248; 82436; 82550; 82565; 82728; 82803; 82962; 83605; 83615; 83735; 83880; 84100; 84133; 84300; 84484; 85025; 85027; 85379; 85384; 85610; 85651; 85730; 86140; 86850; 86900; 86901; 87040; 87086; 93005; 93010; 94002; 94010; 94660; 97116-GP; 97161-GP; 99285-25; C9399; C9803; J0131; J0282; J1100; P9017; U0003